=== PATIENT | female | born 1955 | race Caucasian/White ===

== ENCOUNTER 2024-11-03 08:08 | Emergency (ER) | payer OTHER, SELFPAY ==
--- NOTE | ~2024-11-03 | XR_ITS ---
EXAMINATION: XR LUMBOSACRAL SPINE CLINICAL INFORMATION: back pain COMPARISON: None available. TECHNIQUE: Three views of the lumbosacral spine. FINDINGS: Minimal right convex scoliosis, possibly positional. Normal lordosis. There is a mild superior endplate compression deformity of L2, age indeterminant. There is also minimal wedging of L5, also age indeterminate radiographically. No additional compression deformities. No other definite acute fractures. No subluxations. Disc spaces demonstrate mild to moderate disc degeneration most significant at L1-2. No soft tissue abnormalities aside from mild vascular calcifications. XR/XR lumbar spine 2-3V IMPRESSION: 1. Age-indeterminate mild superior endplate compression deformity of L2. 2. Minimal wedging of L5, age indeterminate. 3. Mild to moderate spondylosis. Electronically signed by: Louie Hernández MD 11/03/2024 10:19 AM EDT
[2024-11-03 08:26] VITALS: BP 158/84; PULSE 100; RESP 18; TEMP 36.7; O2SAT 95; BMI 29.3
--- NOTE | 2024-11-03 09:05 | ED.BACK ---
HPI - Back Pain/Injury General Chief Complaint: Back Pain/Injury Stated Complaint: Back Pain Injury Time Seen by Provider: 11/03/24 09:04 Source: patient and RN notes reviewed Mode of arrival: ambulatory Limitations: no limitations History of Present Illness ED Provider: Kathrin Gonsales PA-C HPI Narrative: This is a 68-year-old female, with a history of hypertension, hyperlipidemia, and asthma, who presents emergency department with concerns for back pain. Patient states that she has a history of a compression fracture of her L5 which occurred in April after a fall. Patient reports that last week she was moving a box spring and mattress and believes she re-injured her back. She states that during this moving process she did not feel any back pain however over the last week she has had increased back pain. She has been taking Motrin for her symptoms which has provided her with minimal relief. She denies any fevers or chills. No abdominal pain, nausea, vomiting or diarrhea. No urinary symptoms. No saddle anesthesia. No urinary or bowel retention or incontinence. Patient reports that the pain in her back stays in her low back, does not radiate. Reports pain is constant and worsens with movement and with palpation. No other complaints or concerns at this time. MD elicited complaint: back pain and back injury Pertinent past history: prior back pain Onset (ago): day(s) Timing: constant Severity: moderate Similar Symptoms Previously: Yes Quality: aching Location: lumbar spine Radiation: none Exacerbating factors: movement Relieving factors: movement Context: while lifting Associated symptoms: denies other symptoms Related Data Previous Rx's ?Medication ?Instructions ?Recorded acetaminophen 500 mg tablet 500 mg PO Q6H PRN pain #30 tabs 11/03/24 (Tylenol Extra Strength) cyclobenzaprine 5 mg tablet 5 mg PO TID #14 tabs 11/03/24 lidocaine 5 % topical patch 1 patch topical DAILY #30 ea 11/03/24 Allergies Allergy/AdvReac Type Severity Reaction Status Date / Time No Known Allergies Allergy Verified 11/03/24 08:27 Review of Systems Review of Systems: Yes all other systems are reviewed and are negative Constitutional: Constitutional: Reports as per HPI Physical Exam Vital Signs: Vital Signs: Last Vital Signs Temp 98.2 F 11/03/24 11:38 Pulse 110 H 11/03/24 11:38 Resp 18 11/03/24 11:38 BP 115/84 11/03/24 11:38 Pulse Ox 98 11/03/24 11:38 O2 Del Method Room Air 11/03/24 11:38 BMI result Body Mass Index 29.3 Const: General: cooperative, comfortable and no acute distress Orientation/consciousness: patient oriented x3 Limitations: no limitations HEENT: Head: Yes normal to inspection, Yes normocephalic and Yes atraumatic Ears: hearing grossly normal bilaterally General nose exam: Normal external nose present Face and sinus: Yes normal facial exam Mouth: Normal oral and palatal mucosa present, oropharynx normal and moist mucous membranes Throat: Yes posterior oropharynx normal Eyes: General: appearance normal, both eyes and all related structures Eyelids: Yes eyelids normal Conjunctivae: conjunctivae normal Sclerae: sclerae normal Pupils: Equal, round and reactive pupils present EOM: EOMs intact bilaterally Neck: Neck: Yes normal visual inspection, Yes full ROM and Yes no lymphadenopathy Lymphatic: no lymphadenopathy noted Chest: Chest palpation & inspection: normal inspection of the chest Resp: Effort & Inspection: normal respiratory effort and able to speak in complete sentences Auscultation: clear to auscultation bilaterally, no crackles, no rales, no rhonchi and no wheezes Cardio: Rate: regular rate Rhythm: regular rhythm Heart sounds: S1 normal heart sound present and S2 normal heart sound present GI: Inspection: Yes normal to inspection Back/Spine/Pelvis: Other: Tenderness palpation along the lumbar midline spine and lumbar paraspinous muscles. DTRs are 2+. Strength 5/5 in lower extremities. Distal sensation circulation intact. No calf tenderness bilaterally. No pitting edema. Skin: General skin exam: no rashes or lesions noted Trauma: no lacerations or abrasions Wounds: no wounds Neuro: General: patient oriented x3 and moves all extremities Cranial nerves: Yes Equal, round and reactive pupils present Extrem: General: Yes normal to inspection Right upper extremity: normal to inspection Left upper extremity: normal to inspection Right lower extremity: normal to inspection Left lower extremity: normal to inspection Course Reevaluation(s) Reevaluation #1: X-ray of the lumbar spine revealing age-indeterminate mild superior endplate compression deformity of L2, and minimal wedging of L5, as well as [id number] spondylosis. Discussed overall findings with patient. Encouraged to follow-up with the mental health specialist. She is well-appearing. She feels better after receiving Tylenol and lidocaine patches. Given strict return precautions. She understands and agrees with plan, stable for discharge. Medications Administered Discontinued Medications Generic Name Dose Route Start Last Admin Trade Name Maryann PRN Reason Stop Dose Admin Acetaminophen 975 mg 11/03/24 09:12 11/03/24 10:01 Acetaminophen 325 Mg Tablet PO 11/03/24 09:13 975 mg ONCE ONE Administration Lidocaine 1 patch 11/03/24 09:12 11/03/24 10:01 Lidocaine 4 % Patch Adh..Patch TRANSDERMA 11/03/24 09:13 1 patch ONCE ONE Administration Protocol Medical Decision Making Medical Decision Making MDM Narrative: This is a 68-year-old female who presents emergency department for evaluation of back pain. On arrival, vital signs within normal limits. She was speaking full sentences under no acute distress. Patient has tenderness palpation along the lumbar spine and paraspinous muscles. This patient presents with back pain most consistent with lumbago. Differential diagnoses includes lumbago versus musculoskeletal spasm / strain versus sciatica.No back pain red flags on history or physical. Presentation not consistent with malignancy (lack of history of malignancy, lack of B symptoms), fracture (no trauma, no bony tenderness to palpation), cauda equina syndrome, (no bowel or urinary incontinence/retention, no saddle anesthesia, no distal weakness), pulmonary embolism, renal colic, pyelonephritis (afebrile, no CVAT, no urinary symptoms). X-ray was obtained due to history of compression fracture, and point tenderness along the midline spine. Differential Diagnosis Differential Diagnoses: The differential diagnosis associated with the presentation includes See above Radiology Impression Discussion of test interpretation with radiology: I have reviewed the radiologist's reading. Radiologist Impression: [address] [address] XRay Report Signed Patient: Renetta Reynolds MR#: [id number] : 1955 Acct:[id number] Age/Sex: 68 / F ADM Date: 11/03/24 Loc: .ED Attending Dr: Ordering Physician: Kathrin Espinoza Date of Service: 11/03/24 Procedure(s): XR lumbar spine 2-3V Accession Number(s): [id number] cc: Oscar Hackett III, MD; Kathrin Espinoza~ EXAMINATION: XR LUMBOSACRAL SPINE CLINICAL INFORMATION: back pain COMPARISON: None available. TECHNIQUE: Three views of the lumbosacral spine. FINDINGS: Minimal right convex scoliosis, possibly positional. Normal lordosis. There is a mild superior endplate compression deformity of L2, age indeterminant. There is also minimal wedging of L5, also age indeterminate radiographically. No additional compression deformities. No other definite acute fractures. No subluxations. Disc spaces demonstrate mild to moderate disc degeneration most significant at L1-2. No soft tissue abnormalities aside from mild vascular calcifications. XR/XR lumbar spine 2-3V IMPRESSION: 1. Age-indeterminate mild superior endplate compression deformity of L2. 2. Minimal wedging of L5, age indeterminate. 3. Mild to moderate spondylosis. Electronically signed by: Louie Hernández MD 11/03/2024 10:19 AM EDT RP Dictated By: Louie Hernández MD Signed By: <Electronically signed by Discharge Plan Discharge Clinical Impression: Compression fracture of L2, Closed wedge compression fracture of L5 vertebra, Back pain Patient Disposition: Home, Self-Care Instructions: Acute Low Back Pain (ED), Back Pain (ED) Additional Instructions: You were seen in the emergency department due to back pain. Your x-rays that were performed today show an age-indeterminate mild superior endplate compression deformity at L2. You also have a minimal wedge of L5. Please follow-up with the mental health specialist regarding these findings. Please alternate between ibuprofen and Tylenol. You may also take muscle relaxants, Flexeril, this is a muscle relaxants, please do not drink alcohol or drive while taking this medication. Gentle stretching, heat or ice, massage can help with your symptoms. You may also apply lidocaine patches as needed for pain. If any new or worsening symptoms occur including but not limited to loss of bowel or bladder control, chest pain, shortness of breath, please seek emergent care. FINDINGS: Minimal right convex scoliosis, possibly positional. Normal lordosis. There is a mild superior endplate compression deformity of L2, age indeterminant. There is also minimal wedging of L5, also age indeterminate radiographically. No additional compression deformities. No other definite acute fractures. No subluxations. Disc spaces demonstrate mild to moderate disc degeneration most significant at L1-2. No soft tissue abnormalities aside from mild vascular calcifications. XR/XR lumbar spine 2-3V IMPRESSION: 1. Age-indeterminate mild superior endplate compression deformity of L2. 2. Minimal wedging of L5, age indeterminate. 3. Mild to moderate spondylosis. Prescriptions: New acetaminophen [Tylenol Extra Strength] 500 mg tablet 500 mg PO Q6H PRN (Reason: pain) Qty: 30 0RF cyclobenzaprine 5 mg tablet 5 mg PO TID Qty: 14 0RF lidocaine 5 % adhesive patch,medicated 1 patch topical DAILY Qty: 30 0RF Rx Instructions: leave on most painful area for up to 12 hrs [address]errals: [facility] [Provider Group] Interventions: ED Discharge Assessment Last Done: 11/03/24 11:38 Discharge Date/Time: 11/03/24 11:39 Print Language: Austrian
--- OUTSIDE RECORDS SUMMARY | 2024-11-03 09:58 | XMS_ITS | Encounter Summary ---
Author Organization [facility] Address [address] [place] [address] Care Team Providers Care Compressor Mechanic Bus Name Role Phone Oscar Hackett MD Primary Care Provider [phone] Reason for Referral * Imaging (Routine) - Closed Specialty Diagnoses / Procedures Referred By Contac t Referred To Contact Radiology Diagnoses Compression fracture of L5 vertebra with routine healing, subsequent encounter Osteopenia, unspecified location Procedures BD Bone Density DXA Axial Skeleton Oscar Hackett MD [address] [place] [address] Phone: tel: fax: [address] Phone: tel: Referral ID Status Reason Start Date Expiration Date Visits Re quested Visits Authorized [id number] Closed 06/25/2024 06/25/2025 1 1 Reason for Visit * Imaging (Routine) - Closed Specialty Diagnoses / Procedures Referred By Contac t Referred To Contact Radiology Diagnoses Compression fracture of L5 vertebra with routine healing, subsequent encounter Osteopenia, unspecified location Procedures BD Bone Density DXA Axial Skeleton Oscar Hackett MD [address] [place] [address] Phone: tel: fax: [address] Phone: tel: Referral ID Status Reason Start Date Expiration Date Visits Re quested Visits Authorized [id number] Closed 06/25/2024 06/25/2025 1 1 Encounter Details Date Type Department Care Team (Latest Contact Info) Description 10/28/2024 10:24 AM EDT - 10/28/2024 11:59 PM EDT Hospital Encounter Bone Density - [facility] [address], [place] [phone] Compression fracture of L5 vertebra with routine healing, subsequent encounter; Osteopenia, unspecified location Discharge Disposition: Home or Self Care Social History Tobacco Use Types Packs/Day Years Used Date Smoking Tobacco: Former Cigarettes Q uit: 07/23/2007 Smokeless Tobacco: Never Alcohol Use Standard Drinks/Week Comments No 0 (1 standard drink = 0.6 oz pur e alcohol) Housing Instability Answer Date Recorde d Are you worried that in the next 2 months you may not have stable housing? No 10/13/2024 Food Access & Nutrition Answer Date Rec orded Do you have access to a vari ety of food including fruits and vegetables? Patient declined 06/25/2024 Health Literacy Answer Date Recorded How often do you need to hav e someone help you when you read instructions, pamphlets, or other written material from your doctor or pharmacy? Never 10/13/2024 Caregiver: How often do you need to have someone help you when you read instructions, pamphlets, or other written material from your doctor or pharmacy? Not on file 10/13/2024 Financial Risk Answer Date Recorded How hard is it for you to pa y for the very basics like food, housing, medical care, and air conditioning / heating? Not very hard 10/13/2024 Transportation Answer Date Recorded Has the lack of transportati on kept you from meetings, work, or from getting things needed for daily living? No Has the lack of transportati on kept you from medical appointments or from getting medications? No 10/13/2024 Social Isolation Answer Date Recorded How often do you feel lonely or isolated from those around you? Sometimes 10/13/2024 Food Risk Answer Date Recorded Within the past 12 months we worried whether our food would run out before we got money to buy more. Sometimes true 025 Within the past 12 months th e food we bought just didn't last and we didn't have money to get more. Never true 10/13/2024 Dependent Care Answer Date Recorded Do you need help finding or paying for care for your loved ones. For example, child support specialist or elderly care for an older adult? No 10/13/2024 Education Answer Date Recorded Do you think completing more education or training, like finishing a GED, going to college, or learning a trade, would be helpful for you? No 10/13/2024 Employment and Income Answer Date Recor ded During the last four weeks, have you been actively looking for work? No 10/13/2024 Living Situation Answer Date Recorded What is your living situation? 0 10/13/2024 Interpersonal Safety Answer Date Record ed Physical Abuse 05/30/2024 Verbal Abuse 05/30/2024 Comments No Sex and Gender Information Value Date Recorded Sex Assigned at Female 06/13/2024 1:42 PM EST Legal Sex Female 2:22 PM EST Gender Identity Female 06/13/2024 1:42 PM EST Sexual Orientation Straight 06/13/2024 1: 42 PM EST documented as of this encounter Functional Status * Are you deaf or do you have serious difficulty hearing? Answer Date of Assessment Author No 06/13/2024 1:08 PM Orlando Simons RN * Are you blind or do you have serious difficulty seeing, even when wearing glasses? Answer Date of Assessment Author No 06/13/2024 1:08 PM Orlando Simons RN * Do you have serious difficulty walking or climbing stairs? Answer Date of Assessment Author No 06/13/2024 1:08 PM Orlando Simons RN * Do you have serious difficulty dressing or bathing? Answer Date of Assessment Author No 06/13/2024 1:08 PM Orlando Simons RN * Because of a physical, mental, or emotional condition, do you have serious difficulty doing errandsalone such as visiting the doctor? Answer Date of Assessment Author No 06/13/2024 1:08 PM Orlando Simons RN documented as of this encounter Mental Status * Because of a physical, mental, or emotional condition, do you have serious difficulty concentrating, remembering, or making decisions? (5 years old or older) Answer Entry Date Author No 06/13/2024 1:08 PM Orlando Simons RN documented in this encounter Medications at Time of Discharge albuterol 2.5 mg /3 mL (0.083 %) nebulizer solution 12/09/2020 albuterol HFA (PROAIR HFA ; PROVENTIL HFA ; VENTOLIN HFA) 90 mcg/actuation inhaler Inhale 2 Puffs into the lungs 4 times daily as needed for Cough or Wheezing. 05/29/2022 amLODIPine (NORVASC) 5 mg tablet Take 1 tablet (5 mg total) by mouth 1 (one) time each day. 90 each 1 10/13/2024 atorvastatin (LIPITOR) 20 mg tablet Take 1 tablet (20 mg total) by mouth at bedtime. 90 each 10/13/2024 bisacodyL (DULCOLAX) 5 mg EC tablet Take 2 tabs at 6pm as directed. 12/27/2023 bisacodyL (DULCOLAX) 5 mg EC tablet Take 2 tablets by mouth right before beginning bowel prep. See instructions provided by the office 2 tablet 09/10/2024 calcium carbonate-cholec alciferol 500 mg-10 mcg (400 unit) per tablet Take 2 tablets by mouth 1 (one) time each day before breakfast. 180 tablet 1 07/01/2024 divalproex (DEPAKOTE ER) 250 mg 24 hr tablet Take 2 Tabs by mouth 2 times daily. 08/02/2020 FLUoxetine (PROzac) 20 mg capsule Take 3 capsules (60 mg total) by mouth 1 (one) time each day. fluticasone propionate (FLONASE) 50 mcg/actuation nasal spray 2 Sprays by Nasal route daily for 360 days. 2 Sprays by Nasal route daily. 05/24/2018 gabapentin (NEURONTIN) 100 mg capsule Take 1 capsule (100 mg total) by mouth at bedtime. 30 each 06/01/2024 5 gabapentin (NEURONTIN) 300 mg capsule Take 1 capsule (300 mg total) by mouth 2 (two) times a day. 60 each 08/07/2024 haloperidoL (HALDOL) 0.5 mg tablet Take 1 tablet by mouth at bedtime. 05/14/2021 inhalat.spacing dev,large mask spacer SPACER DEVICE-ADULT Inhale 1 Device into the lungs 2 times daily. 08/04/2011 lisinopriL (PRINIVIL,ZESTRI L) 20 mg tablet Take 1 tablet (20 mg total) by mouth 1 (one) time each day. 90 tablet 1 10/13/2024 multivitamin with minerals (Centrum Silver) tablet Take 1 tablet by mouth 1 (one) time each day. 90 tablet 1 07/23/2024 oxyCODONE (OXY-IR) 5 mg immediate release capsule Take 1 capsule (5 mg total) by mouth every 6 (six) hours if needed for severe pain. Max Daily Amount: 20 mg 15 capsule 06/13/2024 polyethylene glycol (GoLYTELY) 236-22.74-6.74 -5.86 gram solution 12/27/2023 polyethylene glycol (Golytely) 236-22.74-6.74 -5.86 gram solution Take 4L by mouth once for one dose. May substitue any PEG. Starting at 6PM the night before your procedure drink 1 8oz glasses at your own pace until you complete half of the gallon. Finish 2nd half of the gallon 5 hours before your procedure. 4000 mL 09/10/2024 senna (SENOKOT) 8.6 mg tablet Take 2 tablets (17.2 mg total) by mouth at bedtime. 60 each 11 06/01/2024 5 documented as of this encounter Discharge Disposition Disposition Code Departure Means Destination Home or Self Care documented in this encounter Plan of Treatment Upcoming Encounters Date Type Department Care Team (Late st Contact Info) Description 01/14/2025 1:00 PM EDT Appointment [facility] End[facility] [address] [place] [phone] Mariah Bazzi MD [address] [address] 04/27/2025 1:00 PM EDT Office Visit Adult Medicine [address] [phone] Oscar Hackett MD [address] [place] [id number] 10/15/2025 2:00 PM EDT Office Visit Adult Medicine [facility] [address] [place] [address] Oscar Hackett MD [address] [place] [address] documented as of this encounter Procedures Procedure Name Priority Date/Time Associated Diagnosis Comments BD BONE DENSITY DXA AXIAL SKELETON Routine 10/28/2024 10:54 AM EDT Compression fracture of L5 vertebra with routine healing, subsequent encounter Osteopenia, unspecified location documented in this encounter Results * BD Bone Density DXA Axial Skeleton (10/28/2024 10:54 AM EDT) Anatomical Region Laterality Modality Wrist, Hip, L-spine Bone Densito metry 10/28/2024 11:4 9 AM EDT Impressions 10/28/2024 11:52 AM EDT Osteopenia by WHO criteria. This patient has a 20% risk of major osteoporotic fracture and a 4.3% risk of hip fracture over the next 10 years. (World Health Organization Fracture Risk Assessment) [facility] Department of Internal Medicine recommends using National Osteoporosis Foundation (NOF) guidelines in treatment decisions related to osteoporosis. NOF guidelines suggest considering treatment for postmenopausal women and men aged 50 or older presenting with the following: History of hip or vertebral fracture. T-score = -2.5 (DXA) at the femoral neck, total hip, or spine, after appropriate evaluation to exclude secondary causes. Low bone mass (T-score between -1.0 and -2.5 at the femoral neck or spine) AND a 10-year probability of a hip fracture = 3% OR a 10-year probability of a major osteoporosis-related fracture = 20% based on the [place]-adapted WHO algorithm Please note that all treatment decisions require clinical judgment and consideration of individual patient factors, including patient preferences, co-morbidities, previous drug use, risk factors not captured in the FRAX model (e.g., frailty, falls, vitamin D deficiency, increased bone turnover, interval significant decline in bone density) and possible under- or over-estimation of fracture risk by FRAX. Optional alternative screening schedule based on nova Martinez., [facility] August 10, 2011 for patients with osteopenia (based on hip BMD T-score) is as follows: * ??advanced osteopenia (T scores -2.00 to -2.49), BMD testing every year * ??moderate osteopenia (T scores -1.50 to -1.99), BMD testing every 5 years mild osteopenia or normal BMD (T scores -1.50 and higher), BMD testing every 15 years -------- FINAL REPORT -------- Dictated By: Natasha Rueda Dictated Date: 10/28/2024 11:49 ET Assigned Physician: Natasha Rueda Reviewed and Electronically Signed By: Natasha Rueda Signed Date: 10/28/2024 11:52 ET Workstation ID: [id number] Transcribed By: Self Edit Transcribed Date: 10/28/2024 11:49 ET Narrative 10/28/2024 11:52 AM EDT BONE DENSITY SCAN (DEXA): FINDINGS: Lumbar Spine T-score is -1.7. ?? (SD relative to 20-29 y/o adult) Z-score is 0.3. ??(SD relative to age matched peers) This is considered osteopenia by WHO criteria. Left Hip T-score is -2.4. Z-score is -0.6. This is considered osteopenia by WHO criteria. Comparison exam(s): 01/26/2021. ??No statistically significant change in bone mineral density. Procedure Note Natasha Rueda MD - 10/28/2024 BONE DENSITY SCAN (DEXA): FINDINGS: Lumbar Spine T-score is -1.7. (SD relative to 20-29 y/o adult) Z-score is 0.3. (SD relative to age matched peers) This is considered osteopenia by WHO criteria. Left Hip T-score is -2.4. Z-score is -0.6. This is considered osteopenia by WHO criteria. Comparison exam(s): 01/26/2021. No statistically significant change inbone mineral density. IMPRESSION: Osteopenia by WHO criteria. This patient has a 20% risk of majorosteoporotic fracture and a 4.3% risk of hip fracture over the next 10years. (World Health Organization Fracture Risk Assessment) [facility] Department of Internal Medicine recommendsusing National Osteoporosis Foundation (NOF) guidelines in treatmentdecisions related to osteoporosis. NOF guidelines suggest consideringtreatment for postmenopausal women and men aged 50 or older presentingwith the following: History of hip or vertebral fracture. T-score = -2.5 (DXA) at the femoral neck, total hip, or spine, afterappropriate evaluation to exclude secondary causes. Low bone mass (T-score between -1.0 and -2.5 at the femoral neck or spine)AND a 10-year probability of a hip fracture = 3% OR a 10-year probabilityof a major osteoporosis-related fracture = 20% based on the [place]-adapted WHOalgorithm Please note that all treatment decisions require clinical judgment andconsideration of individual patient factors, including patientpreferences, co-morbidities, previous drug use, risk factors not capturedin the FRAX model (e.g., frailty, falls, vitamin D deficiency, increasedbone turnover, interval significant decline in bone density) and possibleunder- or over-estimation of fracture risk by FRAX. Optional alternative screening schedule based on [facility] for patients with osteopenia (based on hip BMD T-score)is as follows: * advanced osteopenia (T scores -2.00 to -2.49), BMD testing every year * moderate osteopenia (T scores -1.50 to -1.99), BMD testing every 5years mild osteopenia or normal BMD (T scores -1.50 and higher), BMD testingevery 15 years -------- FINAL REPORT -------- Dictated By: Natasha Rueda Dictated Date: 10/28/2024 11:49 ET Assigned Physician: Natasha Rueda Reviewed and Electronically Signed By: Natasha Rueda Signed Date: 10/28/2024 11:52 ET Workstation ID: [id number] Transcribed By: Self Edit Transcribed Date: 10/28/2024 11:49 ET us Oscar Hackett MD IMG DXA PROCEDURES Final Result documented in this encounter Visit Diagnoses Diagnosis Compression fracture of L5 vertebra with routine healing, subsequent encounter Osteopenia, unspecified location documented in this encounter Additional Health Concerns Assessment Noted Time PHQ-9 Depression Total Score: 11 024 5:52 AM EST documented as of this encounter Care Teams Compressor Mechanic Bus Relationship Specialty Start Date End Date Oscar Hackett MD [address] [place] [id number] PCP - General Internal Medicine 05/27/24 documented as of this encounter
--- OUTSIDE RECORDS SUMMARY | 2024-11-03 09:58 | XMS_ITS | Clinical Summary ---
Author Organization [facility] Address [address] [place] [address] Phone Care Team Providers Care Theatre Professor Name Role Phone Oscar Hackett MD Primary Care Provider [phone] Allergies No known active allergies Medications albuterol 2.5 mg /3 mL (0.083 %) nebulizer solution 1 Active albuterol HFA (PROAIR HFA ; PROVENTIL HFA ; VENTOLIN HFA) 90 mcg/actuation inhaler Inhale 2 Puffs into the lungs 4 times daily as needed for Cough or Wheezing. 2 Active bisacodyL (DULCOLAX) 5 mg EC tablet Take 2 tabs at 6pm as directed. 4 Active divalproex (DEPAKOTE ER) 250 mg 24 hr tablet Take 2 Tabs by mouth 2 times daily. 1 Active fluticasone propionate (FLONASE) 50 mcg/actuation nasal spray 2 Sprays by Nasal route daily for 360 days. 2 Sprays by Nasal route daily. 8 Active haloperidoL (HALDOL) 0.5 mg tablet Take 1 tablet by mouth at bedtime. 1 Active polyethylene glycol (GoLYTELY) 236-22.74-6.74 -5.86 gram solution 4 Active inhalat.spacin g dev,large mask spacer SPACER DEVICE-ADULT Inhale 1 Device into the lungs 2 times daily. 2 Active FLUoxetine (PROzac) 20 mg capsule Take 3 capsules (60 mg total) by mouth 1 (one) time each day. Active gabapentin (NEURONTIN) 100 mg capsule Take 1 capsule (100 mg total) by mouth at bedtime. 30 each 4 025 Active senna (SENOKOT) 8.6 mg tablet Take 2 tablets (17.2 mg total) by mouth at bedtime. 60 each 4 025 Active oxyCODONE (OXY-IR) 5 mg immediate release capsule Take 1 capsule (5 mg total) by mouth every 6 (six) hours if needed for severe pain. Max Daily Amount: 20 mg 15 capsule 4 Active calcium carbonate-chol ecalciferol 500 mg-10 mcg (400 unit) per tablet Take 2 tablets by mouth 1 (one) time each day before breakfast. 180 tablet 1 4 Active multivitamin with minerals (Centrum Silver) tablet Take 1 tablet by mouth 1 (one) time each day. 90 tablet 1 5 Active gabapentin (NEURONTIN) 300 mg capsule Take 1 capsule (300 mg total) by mouth 2 (two) times a day. 60 each 1 5 026 Active bisacodyL (DULCOLAX) 5 mg EC tablet Take 2 tablets by mouth right before beginning bowel prep. See instructions provided by the office 2 tablet 5 Active Additional Information Patient not taking.Reported on 10/13/2024 polyethylene glycol (Golytely) 236-22.74-6.74 -5.86 gram solution Take 4L by mouth once for one dose. May substitue any PEG. Starting at 6PM the night before your procedure drink 1 8oz glasses at your own pace until you complete half of the gallon. Finish 2nd half of the gallon 5 hours before your procedure. 4000 mL 5 Active Additional Information Patient not taking.Reported on 10/13/2024 amLODIPine (NORVASC) 5 mg tablet Take 1 tablet (5 mg total) by mouth 1 (one) time each day. 90 each 1 5 Active atorvastatin (LIPITOR) 20 mg tablet Take 1 tablet (20 mg total) by mouth at bedtime. 90 each 1 5 Active lisinopriL (PRINIVIL,ZEST RIL) 20 mg tablet Take 1 tablet (20 mg total) by mouth 1 (one) time each day. 90 tablet 1 5 Active lisinopriL (PRINIVIL,ZEST RIL) 20 mg tablet Take 1 tablet (20 mg total) by mouth 1 (one) time each day. 90 tablet 1 4 025 Discontin ued(Reord er) amLODIPine (NORVASC) 5 mg tablet Take 1 tablet (5 mg total) by mouth 1 (one) time each day. 90 each 1 4 025 Discontin ued(Reord er) atorvastatin (LIPITOR) 20 mg tablet Take 1 tablet (20 mg total) by mouth at bedtime. 90 each 1 4 025 Discontin ued(Reord er) Active Problems Problem Noted Date Diagnosed Date Acute bilateral low back pain without sciatica 1 07/31/2023 Intractable low back pain 05/29/2024 Morbid obesity with BMI of 4 0.0-44.9, adult ([facility] V24, [facility] V28) 04/22/2024 Bipolar disorder ([facility] V24, [facility] V28) 02/20 Left rib fracture 05/24/2018 Overview (04/22/2024): Fell 12/21/2017 Atypical squamous cell rios es of undetermined significance (ASCUS) on cervical cytology with positive high risk human papilloma virus (HPV) 05/03/2017 Overview (04/22/2024): 12/19/2012 Pap ASCUS Neg HPV 03/30/2017 Pap ASCUS +HPV 05/03/2017 Colpo 08/08/2019 Pap negative HR HPV neg Tobacco use disorder 05/01/2017 Anxiety and depression 01/26/2016 Essential hypertension, benign 04/24/2014 Osteopenia 03/03/2014 Mixed hyperlipidemia 12/10/2007 Premature ventricular contractions 12/27/2005 Asthma 12/12/2005 Encounters Date Type Department Care Team Description 10/28/2024 10:24 AM EDT - 10/28/2024 11:59 PM EDT Hospital Encounter Bone [address] [phone] Compression fracture of L5 vertebra with routine healing, subsequent encounter; Osteopenia, unspecified location Discharge Disposition: Home or Self Care 10/13/2024 11:00 AM EDT Office Visit Adult [address] [phone] Oscar Hackett MD Routine physical examination (Primary Dx); Essential hypertension, benign; Mixed hyperlipidemia; Screening for diabetes mellitus; Other specified counseling; Screening mammogram for breast cancer; Chronic low back pain without sciatica, unspecified back pain laterality; Anxiety and depression; Bipolar affective disorder, remission status unspecified (CMS/[facility] V24, CMS/[facility] V28); Obesity (BMI 30-39.9) 08/19/2024 Telephone Adult [address] [phone] Oscar Hackett MD ORDERS ([facility] physician order # [id number]) 08/14/2024 Billing Patient Not Present [address] [phone] Oscar Hackett MD Essential (primary) hypertension (Primary Dx); Wedge compression fracture of first lumbar vertebra, init (CMS/HCC V24, CMS/HCC V28); Hyperlipidemia, unspecified hyperlipidemia type; Unsteadiness on feet; Bipolar affective disorder, remission status unspecified (CMS/HCC V24, CMS/[facility] V28); Anxiety disorder, unspecified type; Repeated falls; Low back pain, unspecified back pain laterality, unspecified chronicity, unspecified whether sciatica present; Uncomplicated asthma, unspecified asthma severity, unspecified whether persistent; Morbid (severe) obesity due to excess calories (CMS/[facility] V24, CMS/[facility] V28) from Last 3 Months Immunizations Name Administration Dates Next Due Influenza trivalent, 0.5mL ( Fluzone High-dose) 65yo and older 05/29/2022 Influenza trivalent, with pr eservative (Fluzone; Afluria) 6mo and older 05/22/2015,04/24/2014,04/12/2013,08/04,07/29/2010,06/26/2008 Influenza, Unspecified 05/03/2021,2017,03/25/2017,03/12,01/22/2012 Moderna SARS-CoV-2 COVID-19, mRNA, LNP-S, preservative free 12/11/2020 Pneumococcal conjugate 13 va lent (Prevnar 13, PCV13) 2mo and older 05/21/2015 Pneumococcal polysaccharide 23 valent (Pneumovax 23) 2yo and older 09/15/2020,03/02/2014 Td Tetanus diptheria (Tdvax) 7yo and older 02/08/2018 Tdap Tetanus diptheria acell ular pertussis (Boostrix; Adacel) 7yo and older 04/19/2007 Zoster Live 02/17/2017 Zoster recombinant (Shingrix ) 19yo and older 02/08/2019,01/16/2018 Surgical History Surgery Date Site/Laterality Comments SECTION PROCEDURE: HISTORICAL ; COMMENT: times two TUBAL LIGATION 05/1985 PROCEDURE: HISTORICAL TUBAL LIGATION COLONOSCOPY 02/04/2001 PROCEDURE: GA COLONOSCOPY FLX DX W/COLLJ SPEC WHEN PFRMD; COMMENT: Negative, Dr. Ross COLONOSCOPY 10/11/2010 PROCEDURE: GA COLONOSCOPY FLX DX W/COLLJ SPEC WHEN PFRMD; COMMENT: Normal. OTHER SURGICAL HISTORY PROCEDURE: GA OPEN TX TRANS-SCAPHOPERILUNAR FRACTURE DISLC; COMMENT: Left 04/04 OTHER SURGICAL HISTORY PROCEDURE: GA NEPHROSTOMY NEPHROTOMY W/DRAINAGE; COMMENT: as a child OTHER SURGICAL HISTORY PROCEDURE: ---- OTHER ----; COMMENT: cervical cyst removal OTHER SURGICAL HISTORY 04/10/2013 PROCEDURE: ---- OTHER ----; COMMENT: ORIF l wrist TONSILLECTOMY 07/1974 PROCEDURE: HISTORICAL TONSILLECTOMY Medical History Medical History Date Comments Depressive disorder, not els ewhere classified 12/27/2005 DX:Depressive disorder, not elsewhere classified Unspecified asthma(493.90) 12/12/2005 DX:Un specified asthma(493.90) Anxiety disorder in conditio ns classified elsewhere DX:Anxiety disorder in condi tions classified elsewhere Family history of malignant neoplasm of gastrointestinal tract 12/16/2007 DX:Family history of maligna nt neoplasm of gastrointestinal tract; COMMENT: Uncle with colon cancer. Negative colonoscopy 02/04/2001, no colon cancer screening needed for 10 years. Other premature beats 12/27/2005 DX:Other p remature beats Left wrist fracture 03/2013 DX:Left wris t fracture Right wrist fracture 05/2012 DX:Right wr ist fracture Essential hypertension, benign 04/24/2014 D X:Essential hypertension, benign Hypercholesteremia DX:Hyperchole steremia Family History Medical History Relation Name Comments Emphysema Father COPD, , PE Other: aneurysm Maternal Grandfather Diabetes Mother uterine cancer, PVD, asthma Colon cancer Uncle Breast cancer Neg Hx Ovarian cancer Neg Hx Relation Name Status Comments Father Maternal Grandfather Maternal Grandmother [place] Mother (Age 75) Paternal Grandfather [place] Paternal Grandmother [place] Uncle Social History Tobacco Use Types Packs/Day Years Used Date Smoking Tobacco: Former Cigarettes Q uit: 07/23/2007 Smokeless Tobacco: Never Tobacco Cessation:Counseling Given: Not Answered Alcohol Use Standard Drinks/Week Comments No 0 [...] care for your loved ones. For example, teacher early childhood development or elderly care for an older adult? [...] Orientation Straight 06/13/2024 1: 42 PM EST Obstetrics History Last Filed Vital Signs Vital Sign Reading Time Taken Comments Blood Pressure 110/80 10/13/2024 10:57 AM EDT Pulse 82 10/13/2024 10:57 AM EDT Temperature 36.4 ??C (97.6 ??F) 10/13/2024 10:57 AM E DT Respiratory Rate 16 10/13/2024 10:57 AM EDT Oxygen Saturation 96% 10/13/2024 10:57 AM EDT Inhaled Oxygen Concentration - - Weight 77.1 kg (170 lb) 10/13/2024 10:57 AM EDT Height 157.5 cm (5' 2.01 ) 10/13/2024 10:57 AM E DT Body Mass Index 31.09 10/13/2024 10:57 AM EDT Plan of Treatment Upcoming Encounters Date Type Department Care Team (Late st Contact Info) Description 01/14/2025 1:00 PM EDT Appointment [facility] [address] [place] [id number] Mariah Bazzi MD [address] [address] 04/27/2025 1:00 PM EDT Office Visit Adult Medicine [address] [phone] Oscar Hackett MD [address] [place] [address] 10/15/2025 2:00 PM EDT Office Visit [address] [phone] Oscar Hackett MD [address] [place] [address] [phone] Health Maintenance Due Date Last Done Comments RSV Immunization Adult Patients (1 - Risk 60-74 years 1-dose series) 2015 Cervical Cancer Screening: Pap Smear 08/08/2020 08/08/2019, 08/08/2019, 08/08/2019 Colorectal Cancer Screening: Colonoscopy 07/01/2022 Medicare Annual Wellness Visit 07/01/2022 Breast Cancer Screening 01/26/2023 01/27/20 21, 06/12/2019, 05/24/2018, Additional history exists COVID-19 Vaccine ( season) 2024 12/11/2020, 11/13/2020 Influenza Vaccine (Season Ended) 2025 05/04/2023, 05/29/2022, 05/03/2021, Additional history exists Falls Risk Assessment 06/01/2025 06/01/2024, 024 Depression Screening 06/25/2025 06/25/2024 Pneumococcal Vaccine: 50+ Years (3 of 3 - PCV20 or PCV21) 09/15/2025 09/15/2020, 05/21/2015, 03/02/2014 Hypertension/CHF/CAD Annual BMP Blood Test 10/13/2025 10/13/2024, 07/01/2024, 06/13/2024, Additional history exists Social Influencers of Health Screening 10/13/2025 10/13/2024 DTaP,Tdap,and Td Vaccines (3 - Td or Tdap) 02/09/2028 02/08/2018, 04/19/2007 Cholesterol Screening (Lipid Panel) 10/13/2029 10/13/2024, 06/12/2024, 03/14/2023 Osteoporosis Screening (Bone Density Screening) 10/28/2034 10/28/2024, 01/26/2021 Hepatitis C Screening Completed 03/30/2017 Zoster Vaccines Completed 02/08/2019, 12/22, 02/17/2017 HIB Vaccines Aged Out No longer eligi ble based on patient's age to complete this topic HPV Vaccines Aged Out No longer eligi ble based on patient's age to complete this topic Hepatitis A Vaccines Aged Out No long er eligible based on patient's age to complete this topic Hepatitis B Vaccines Aged Out No long er eligible based on patient's age to complete this topic IPV Vaccines Aged Out No longer eligi ble based on patient's age to complete this topic MMR Vaccines Aged Out No longer eligi ble based on patient's age to complete this topic Meningococcal ACWY Vaccine Aged Out N o longer eligible based on patient's age to complete this topic Meningococcal B Vaccine Aged Out No l onger eligible based on patient's age to complete this topic RSV Immunization Patients Under 20 months Aged Out No longer eligible based on patient's age to complete this topic Varicella Vaccines Aged Out No longer eligible based on patient's age to complete this topic Procedures Procedure Name Priority Date/Time Associated Diagnosis Comments BD BONE DENSITY DXA AXIAL SKELETON Routine 10/28/2024 10:54 AM EDT Compression fracture of L5 vertebra with routine healing, subsequent encounter Osteopenia, unspecified location CBC WITH AUTO DIFFERENTIAL Routine 10/13/2024 12:00 PM EDT Routine physical examination CBC AND DIFFERENTIAL Routine 10/13/2024 12:00 PM EDT Routine physical examination COMPREHENSIVE METABOLIC PANEL Routine 10/13/2024 12:00 PM EDT Essential hypertension, benign Screening for diabetes mellitus LIPID PANEL WITH REFLEX TO DIRECT LDL Routine 10/13/2024 12:00 PM EDT Routine physical examination Mixed hyperlipidemia FALLS RISK ASSESSMENT Routine 02/20/2024 SCREENING MAMMOGRAPHY BI 2-VIEW BREAST INC CAD Routine 01/26/2021 3:40 PM EDT Encounter for screening mammogram for malignant neoplasm of breast PAP SMEAR Routine 08/08/2019 HEPATITIS C SCREENING Routine 03/30/2017 from Last 3 Months or Most Recently Relevant to Health Maintenance Results * BD Bone Density DXA Axial [...] (World Health Organization Fracture Risk Assessment) The [facility] Department of Internal Medicine recommends using [...] alternative screening schedule based on nova Martinez., [facility] August 10, 2011 for patients with osteopenia [...] Signed Date: 10/28/2024 11:52 ET Workstation ID: [id number] Transcribed By: Self Edit Transcribed Date: 10/28/2024 [...] (World Health Organization Fracture Risk Assessment) The [facility] Department of Internal Medicine recommendsusing National [...] alternative screening schedule based on nova Martinez., [facility] for patients with osteopenia (based on [...] Signed Date: 10/28/2024 11:52 ET Workstation ID: [id number] Transcribed By: Self Edit Transcribed Date: 10/28/2024 11:49 ET us Oscar Hackett MD IMG DXA PROCEDURES Final Result * (ABNORMAL) Lipid panel with reflex to direct LDL (10/13/2024 12:00 PM EDT) Cholesterol 213(H) 0 - 200 mg/dL LAB CHEMISTRY METHOD 10/13/2024 4:57 PM EDT [facility] Triglycerides 63 0 - 150 mg/dL LAB CHEMISTRY METHOD 10/13/2024 4:57 PM EDT [facility] HDL 86 >=40 mg/dL LAB CHEMISTRY METHOD 10/13/2024 4:57 PM EDT [facility] LDL Calculated 114(H) 0 - 100 mg/dL LAB CHEMISTRY METHOD 10/13/2024 4:57 PM EDT [facility] VLDL Cholesterol Dennis 12.6 mg/dL LAB CHEMISTRY METHOD 10/13/2024 4:57 PM EDT [facility] Non HDL Chol. (LDL+VLDL) 127 <145 mg/dL LAB CHEMISTRY METHOD 10/13/2024 4:57 PM EDT [facility] Chol/HDL Ratio 2.5 0.0 - 4.4 LAB CHEMISTRY METHOD 10/13/2024 4:57 PM EDT [facility] Blood Venous blood specimen / Unknown Venipuncture / Unknown 10/13/2024 12:00 PM EDT 10/13/2024 12:00 PM EDT Oscar Hackett MD LAB BLOOD ORDERABLES Final Resu lt [facility] [address] [place] [address], * (ABNORMAL) CBC auto differential (10/13/2024 12:00 PM EDT) WBC 5.9 4.8 - 10.8 K/mcL LAB HEMETOLOGY METHOD 10/13/2024 3:05 PM EDT [facility] RBC 4.20 3.80 - 4.80 M/mcL LAB HEMETOLOGY METHOD 10/13/2024 3:05 PM [facility] Hemoglobin 13.5 11.5 - 16.0 g/dL LAB HEMETOLOGY METHOD 10/13/2024 3:05 PM [facility] Hematocrit 41.0 35.0 - 47.0 % LAB HEMETOLOGY METHOD 10/13/2024 3:05 PM [facility] MCV 97.6 79.0 - 98.0 FL LAB HEMETOLOGY METHOD 10/13/2024 3:05 PM [facility] MCH 32.1(H) 27.0 - 32.0 pcg LAB HEMETOLOGY METHOD 10/13/2024 3:05 PM [facility] MCHC 32.9 32.0 - 37.0 g/dL LAB HEMETOLOGY METHOD 10/13/2024 3:05 PM [facility] RDW 12.6 11.0 - 15.0 % LAB HEMETOLOGY METHOD 10/13/2024 3:05 PM [facility] Platelets 250 130 - 400 K/mcL LAB HEMETOLOGY METHOD 10/13/2024 3:05 PM [facility] MPV 10.3 7.0 - 11.0 FL LAB HEMETOLOGY METHOD 10/13/2024 3:05 PM [facility] NRBC 0.0 <1.0 % LAB HEMETOLOGY METHOD 10/13/2024 3:05 PM [facility] NRBC Absolute 0.00 <0.10 K/mcL LAB HEMETOLOGY METHOD 10/13/2024 3:05 PM [facility] Neutrophils Relative 44.3 % LAB HEMETOLOGY METHOD 10/13/2024 3:05 PM [facility] Lymphocytes Relative 42.5 % LAB HEMETOLOGY METHOD 10/13/2024 3:05 PM [facility] Monocytes Relative 9.6 % LAB HEMETOLOGY METHOD 10/13/2024 3:05 PM [facility] Eosinophils Relative 2.7 % LAB HEMETOLOGY METHOD 10/13/2024 3:05 PM [facility] Basophils Relative 0.7 % LAB HEMETOLOGY METHOD 10/13/2024 3:05 PM [facility] Immature Granulocytes Relative 0.2 % LAB HEMETOLOGY METHOD 10/13/2024 3:05 PM [facility] Neutrophils Absolute 2.63 1.50 - 7.00 K/mcL LAB HEMETOLOGY METHOD 10/13/2024 3:05 PM [facility] Lymphocytes Absolute 2.52 1.00 - 5.00 K/mcL LAB HEMETOLOGY METHOD 10/13/2024 3:05 PM [facility] Monocytes Absolute 0.57 0.20 - 1.00 K/mcL LAB HEMETOLOGY METHOD 10/13/2024 3:05 PM [facility] Eosinophils Absolute 0.16 0.00 - 0.50 K/mcL LAB HEMETOLOGY METHOD 10/13/2024 3:05 PM [facility] Basophils Absolute 0.04 0.00 - 0.20 K/mcL LAB HEMETOLOGY METHOD 10/13/2024 3:05 PM [facility] Immature Granulocytes Absolute 0.01 0.00 - 0.03 K/mcL LAB HEMETOLOGY METHOD 10/13/2024 3:05 PM [facility] Blood Venous blood specimen / Unknown Venipuncture / Unknown 10/13/2024 12:00 PM EDT 10/13/2024 12:00 PM EDT us Oscar Hackett MD LAB BLOOD ORDERABLES Final Resu lt [facility] [address] [place] [address], * Comprehensive metabolic panel (10/13/2024 12:00 PM EDT) Sodium 138 133 - 145 mmol/L LAB CHEMISTRY METHOD 10/13/2024 4:55 PM EDT [facility] Potassium 4.4 3.5 - 5.5 mmol/L LAB CHEMISTRY METHOD 10/13/2024 4:55 PM [facility] Chloride 103 96 - 110 mmol/L LAB CHEMISTRY METHOD 10/13/2024 4:55 PM [facility] CO2 26 21 - 32 mmol/L LAB CHEMISTRY METHOD 10/13/2024 4:55 PM [facility] Anion Gap 9 3 - 11 LAB CHEMISTRY METHOD 10/13/2024 4:55 PM T [facility] Glucose 84 70 - 100 mg/dL LAB CHEMISTRY METHOD 10/13/2024 4:55 PM [facility] BUN 16 5 - 25 mg/dL LAB CHEMISTRY METHOD 10/13/2024 4:55 PM [facility] Creatinine 0.59 0.50 - 1.10 mg/dL LAB CHEMISTRY METHOD [facility]/13[facility]24 [facility] eGFR 98 >=60 mL/min/1. 73m2 LAB CHEMISTRY METHOD 10/13/2024 4:55 PM [facility] Comment:Calculation based on the??Chronic Kidney Disease Epidemiology Collaboration (CKD-EPI) equation refit??without adjustment for race. BUN/Creatinine Ratio 27.1 LAB CHEMISTRY METHOD 10/13/2024 4:55 PM [facility] Calcium 9.5 8.5 - 10.5 mg/dL LAB CHEMISTRY METHOD 10/13/2024 4:55 PM [facility] AST (SGOT) 15 10 - 42 unit/L LAB CHEMISTRY METHOD 10/13/2024 4:55 PM EDT [facility] ALT (SGPT) 20 10 - 60 unit/L LAB CHEMISTRY METHOD 10/13/2024 4:55 PM EDT [facility] Alkaline Phosphatase 84 42 - 121 unit/L LAB CHEMISTRY METHOD 10/13/2024 4:55 PM EDT [facility] Total Protein 7.0 6.0 - 8.0 g/dL LAB CHEMISTRY METHOD 10/13/2024 4:55 PM EDT [facility] Albumin 3.8 3.2 - 5.0 g/dL LAB CHEMISTRY METHOD 10/13/2024 4:55 PM EDT [facility] Total Bilirubin 0.7 0.0 - 1.4 mg/dL LAB CHEMISTRY METHOD 10/13/2024 4:55 PM EDT [facility] Blood Venous blood specimen / Unknown Venipuncture / Unknown 10/13/2024 12:00 PM EDT 10/13/2024 12:00 PM EDT Oscar Hackett MD LAB BLOOD ORDERABLES Final Resu lt [facility] [address] [place] [address], * Hm Falls Risk Assessment (02/20/2024) Pathologist [facility] Falls Risk Assessment Abstracted Historical Provider HEALTH MAINTENANCE Final Result * SCREENING MAMMOGRAPHY BI 2-VIEW BREAST INC CAD (01/26/2021 3:40 PM EDT) Anatomical Region Laterality Modality Radiographic Allison ging 08/02/2020 3:05 PM EST Narrative 01/27/2021 8:59 AM EDT This is a summary report. The complete report is available in the patient's medical record. If you cannot access the medical record, please contact the sending organization for a detailed fax or copy. Full field digital screening mammography, reviewed with CAD and compared to previous. ??Both 2D and tomosynthesis techniques were used. ??The breasts are composed of fatty and fibroglandular tissue. ??No suspicious mass, architectural distortion or suspicious calcifications are identified. IMPRESSION: : No mammographic evidence of malignancy. BIRADS 1-Negative; N. 5 year breast cancer risk assessment 1.5 % Lifetime breast cancer risk assessment 5.6 % Breast cancer risk category Low (<15%) Procedure Note Srinivas Bearden MD - 07/11/2022 This is a summary report. The complete report is available in thepatient's medical record. If you cannot access the medical record, pleasecontact the sending organization for a detailed fax or copy. Full field digital screening mammography, reviewed with CAD and comparedto previous. Both 2D and tomosynthesis techniques were used. The breastsare composed of fatty and fibroglandular tissue. No suspicious mass,architectural distortion or suspicious calcifications are identified. IMPRESSION: : No mammographic evidence of malignancy. BIRADS 1-Negative; N. 5 year breast cancer risk assessment 1.5 % Lifetime breast cancer risk assessment 5.6 % Breast cancer risk category Low (<15%) Ana CASSIDY IMG XR PROCEDURES Final Resul t * Pap smear (08/08/2019) 08/08/2019 Narrative HISTORICAL TESTING LAB RESULTING AGENCY - 08/12/2019 12:56 PM EST [id number] THINPREP PAP, IMAGED: NEGATIVE FOR SQUAMOUS INTRAEPITHELIAL LESION AND MALIGNANCY . ABUNDANT RED BLOOD CELLS ARE PRESENT. LETTY BLANTON , MEJIA(ASCP) (CASE ELECTRONICALLY SIGNED 08 12 2019) RESULT OF APTIMA HIGH RISK HPV ASSAY: HIGH RISK HPV: ??NEGATIVE (SEROTYPES 16,18,31,33,35,39,45,51,52,56,58,59,66,68) COMPLETED ON 2019-08-11 ADEQUACY: SATISFACTORY ENDOCERVICAL/TRANSFORMATION ZONE COMPONENT PRESENT. SOURCE: THINPREP PAP HPV ANY DX: ??REFLEX 16 AND 18, CERVICAL, IMAGED CLINICAL INFORMATION: HPV ANY DIAGNOSIS. Z12.4, LMP 12/19/10. us Elan Hernandez MD LAB CYTOLOGY ORDERABLES Final Result HISTORICAL TESTING LAB RESULTING AGENCY * Hepatitis C Screening (03/30/2017) Hepatitis C Screening Abstracted us Historical Provider HEALTH MAINTENANCE Final Result from Last 3 Months or Most Recently Relevant to Health Maintenance Insurance [employer] Member Subscriber Plan / Payer (Ef fective 2024-Present) Name:Renetta Reynolds Relation to Subscriber:Self Name:Renetta Reynolds Payer ID:[id number] Group ID:[id number] Type:Not on file Address: [place] [address] [address] [id number] Advance Directives * Full Code - Default (Latest Code Status on File) Date Activated Date Inactivated Comments 05/29/2024 9:54 PM 06/01/2024 9:00 PM This is ord er is used when code status has not been discussed with the patient, or code status is otherwise unknown/unconfirmed To update the patient's code status, place a code status order. Do not modify or discontinue any currently active code status orders. Care Teams Theatre Professor Relationship Specialty Start Date End Date Oscar Hackett MD [address] [place] [id number] PCP - General Internal Medicine 05/27/24
[2024-11-03] MEDS: Acetaminophen 325 MG TABLET 975 MG PO (10:01)
[2024-11-03] MEDS: Lidocaine 4 % Patch ADH..PATCH 1 PATCH TRANSDERMA (10:01)
[2024-11-03 10:02] VITALS: BP 115/84; PULSE 110; RESP 18; TEMP 36.8; O2SAT 98
[2024-11-03 11:38] VITALS: BP 115/84; PULSE 110; RESP 18; TEMP 36.8; O2SAT 98
== END 2024-11-03 11:39 | disposition home or self-care (01) ==
PROVIDERS: Emergency Provider Emergency Medicine; PCP Internal Medicine
DX: M48.56XA Collapsed vertebra, not elsewhere classified, lumbar region, initial encounter for fracture (principal); M54.50 Low back pain, unspecified
CPT/HCPCS: 72100; 99283; 99284

== ENCOUNTER → 2024-11-03 09:12 | Outpatient (BNV) | payer OTHER, SELFPAY | PROVIDERS: Emergency Provider Emergency Medicine; PCP Internal Medicine; Visit Provider Radiology Diagnostic Radiology | DX: M47.812 Spondylosis without myelopathy or radiculopathy, cervical region (principal) | CPT/HCPCS: 72100 ==

== ENCOUNTER → 2025-02-12 19:48 | Outpatient (BNV) | payer OTHER, SELFPAY | PROVIDERS: Visit Provider Radiology Diagnostic Radiology | DX: S92.355A Nondisplaced fracture of fifth metatarsal bone, left foot, initial encounter for closed fracture (principal) | CPT/HCPCS: 73610 ==

== ENCOUNTER 2025-02-12 20:39 | Emergency (ER) | payer OTHER, SELFPAY ==
--- NOTE | ~2025-02-12 | XR_ITS ---
CLINICAL HISTORY: fall 3 view left ankle Comparison: None provided Findings: No acute ankle fracture. Partially evaluated subtle nondisplaced 5th metatarsal fracture. Osteopenia. Mild osteophytes along the dorsum of the foot. No ankle effusion. No radiopaque foreign body. Diffuse soft tissue swelling. IMPRESSION: 1. No acute ankle fracture. 2. Partially evaluated subtle nondisplaced 5th metatarsal fracture. This document has been electronically signed by: Scott Gilbert MD on 02/12/2025 21:10:46
--- NOTE | ~2025-02-12 | XR_ITS ---
CLINICAL HISTORY: Pain; Abnormal L Ankle X-ray; ? 5th Metatarsal Fx 3 view left foot Comparison: None provided Findings: Nondisplaced obliquely oriented 5th metatarsal fracture extending through the tarsometatarsal joint distally along the meta diaphysis. Lateral soft tissue swelling. No significant arthritic change or erosions. No radiopaque foreign body. IMPRESSION: 5th metatarsal fracture. This document has been electronically signed by: Scott Gilbert MD on 02/13/2025 02:33:43
[2025-02-12 20:43] VITALS: BP 151/87; PULSE 84; O2SAT 98
[2025-02-12 20:44] VITALS: BP 179/77; PULSE 88; RESP 16; TEMP 37.3; O2SAT 96; BMI 29.8
[2025-02-12 22:00] VITALS: BP 141/64; PULSE 69; RESP 16; TEMP 36.7; O2SAT 99
--- NOTE | 2025-02-13 00:51 | ED_ITS ---
HPI - Extremity Injury (Lower) General Chief Complaint: Extremity Injury, Lower Stated Complaint: L ankle injury Time Seen by Provider: 02/13/25 00:48 Source: patient Mode of arrival: ambulatory Limitations: no limitations History of Present Illness ED Provider: Louie CASSIDY HPI Narrative: The patient is a 69-year-old female presenting to the ED reporting yesterday while walking down a incline on her street she suffered a inversion injury of her left ankle. Patient reports severe pain in the lateral aspect of the left foot radiating to the left lateral malleolus. Patient attempted ice and rest at home without significant relief and presents to the ED for evaluation after she noted increased swelling and bruising of the lateral aspect of the foot and ankle. The patient denies previous injury to the affected extremity, denies associated head strike, reports fall was mechanical, denies prodrome or LOC. Related Data Previous Rx's ?Medication ?Instructions ?Recorded acetaminophen 500 mg tablet 500 mg PO Q6H PRN pain #30 tabs 11/03/24 (Tylenol Extra Strength) cyclobenzaprine 5 mg tablet 5 mg PO TID #14 tabs 11/03 lidocaine 5 % topical patch 1 patch topical DAILY #30 ea 11/03/24 acetaminophen 500 mg capsule 1,000 mg (2 x 500 mg) PO .q8 PRN 02/13/25 fever or pain #30 caps ibuprofen 600 mg tablet 600 mg PO Q8H PRN fever or p ain 02/13/25 #30 tabs oxycodone 5 mg tablet 5 mg PO Q8H PRN pain #14 tab s 02/13/25 Allergies Allergy/AdvReac Type Severity Reaction Status Date / Time No Known Allergies Allergy Verified 02/12/25 20:45 Review of Systems Review of Systems: Yes all other systems are reviewed and are negative [facility] Social History Social History (System 05/22/23 @ 14:51 by Yamilet Zhou) Alcohol intake: former Smoked in Last 30 Days: Yes Use of substances other than those prescribed or required for medical reasons: No Advance Directives: No Advance Directives Information Provided: Yes Physical Exam Vital Signs: Vital Signs: Last Vital Signs Temp 98.0 F 02/13/25 02:16 Pulse 69 02/13/25 02:16 Resp 20 02/13/25 02:16 BP 124/70 02/13/25 02:16 Pulse Ox 97 02/13/25 02:16 O2 Del Method Room Air 02/13/25 02:16 BMI result Body Mass Index 29.8 CONSTITUTIONAL: The patient appears non-toxic, well nourished and in no acute distress. Vital signs as documented. HEAD: Atraumatic, normocephalic. EYES: EOMs grossly intact, pupils equal, conjunctiva clear, no exudate. ENT: Nares patent, no discharge. Airway patent, no audible stridor, visible mucosa is pink and moist without noted lesions. NECK: trachea is midline, no obvious masses or gross abnormalities. CHEST: Symmetric movement, normal appearance. LUNGS: Non-labored work of breathing. CARDIAC: No evidence of hypoperfusion. ABDOMEN: Nondistended, no obvious injury. : Deferred. EXTREMITIES: There is significant swelling, contusion, and tenderness to palpation of the lateral aspect of the left foot and lateral malleolus of the left ankle, no proximal tenderness, no open injury. Distal CSM is intact, 2+ DP/PT pulses, painful but not limited range of motion. Moves all other extremities spontaneously without reported pain. No other obvious injury or deformity noted. NEURO: Alert and oriented x3, CN II-XII appear grossly intact. Cerebellar Functioning grossly intact. Speech clear and appropriate. SKIN: Warm, dry, color appropriate. No rashes or lesions noted. Medications Administered Discontinued Medications Generic Name Dose Route Start Last Admin Trade Name Freq PRN Reason Stop Dose Admin Ibuprofen 600 mg 02/13/25 00:05 02/13/25 00:33 Ibuprofen 600 Mg Tablet PO 02/13/25 00:06 600 mg ONCE ONE Administration Oxycodone HCl 5 mg 02/13/25 01:07 02/13/25 01:26 Oxycodone Hcl Immed Release 5 Mg Tablet PO 02/13/25 01:08 5 mg ONCE ONE Administration Medical Decision Making Medical Decision Making MDM Narrative: 3:53 AM 02/13/2025 (Philippe CASSIDY): The patient is a 69-year-old female presenting to the ED for evaluation of left ankle and foot pain after a rolling inversion injury that occurred yesterday while walking in heels. The patient in the ED has contusion and swelling of the lateral malleolus and lateral left foot. The patient's x-ray show no ankle fracture however there is evidence of a nondisplaced 5th metatarsal fracture. Patient will be placed in a walking boot, provided crutches, and will be treated with anti-inflammatories for pain, will be treated with oxycodone for breakthrough pain. Patient will be referred to Orthopedics. Admission/Observation Consideration of admission/observation: Escalation of care including admission/observation considered Radiology Impression Discussion of test interpretation with radiology: I have reviewed the radiologist's reading. Radiologist Impression: 3 view left ankle Comparison: None provided Findings: No acute ankle fracture. Partially evaluated subtle nondisplaced 5th metatarsal fracture. Osteopenia. Mild osteophytes along the dorsum of the foot. No ankle effusion. No radiopaque foreign body. Diffuse soft tissue swelling. IMPRESSION: 1. No acute ankle fracture. 2. Partially evaluated subtle nondisplaced 5th metatarsal fracture. This document has been electronically signed by: Scott Gilbert MD on 02/12/2025 21:10:46 3 view left foot Comparison: None provided Findings: Nondisplaced obliquely oriented 5th metatarsal fracture extending through the tarsometatarsal joint distally along the meta diaphysis. Lateral soft tissue swelling. No significant arthritic change or erosions. No radiopaque foreign body. IMPRESSION: 5th metatarsal fracture. This document has been electronically signed by: Scott Gilbert MD on 02/13/2025 02:33:43 Prescription Management I considered prescription management with: Pain Medication Discharge Plan Discharge Clinical Impression: Fracture of fifth metatarsal bone of left foot Patient Disposition: Home, Self-Care Instructions: Foot Fracture in Adults (ED) Additional Instructions: Thank you for choosing [facility]'s Emergency Department for your care today. Your x-ray today unfortunately showed that you suffered a fracture of the 5th metatarsal bone of your left foot. There was no fracture of your ankle. At this time there is no evidence of an acute process requiring admission to the hospital or continued ED observation, and it is safe to discharge you home. Please wear the boot provided for comfort and use the crutches to remain nonweightbearing. You may take alternating (staggered) doses of ibuprofen 600mg and Tylenol 1000mg every 4 hours as needed for any additional pain. Please rest the injured area, and apply ice for 20 minutes every hour. Please stay well hydrated and get plenty of rest. As a part of your care plan, you have also been prescribed an opiate based pain medication. Please take this medication only for severe pain that is not relieved by ibuprofen and/or Tylenol. Opiate based medications have a high risk of unintentional addiction and abuse. Take this medication only as directed and only if absolutely necessary. This medicine can make you drowsy, you are not allowed to drive, operate heavy machinery, or be the sole care provider for children while taking this medication. Please follow up with our orthopedic department by calling the number provided for a follow up appointment. Please also follow up with your primary care physician for re-evaluation, additional management of your symptoms, and continued preventative care. If you do not have a primary care physician, please call the [facility] at [phone] to establish a new primary care physician. While waiting to establish your new primary care physician, you can call our [facility]in [facility] at [phone] for non-emergency needs. Please return to the emergency department if you develop a severe or sudden change in your symptoms, a fever over 100.4 that does not improve with Tylenol or Ibuprofen, recurrent vomiting, or any other new or worsening symptoms or concerns. Prescriptions: New oxycodone 5 mg tablet 5 mg PO Q8H PRN (Reason: pain) Qty: 14 0RF Rx Instructions: Partial Fill upon patient request. ibuprofen 600 mg tablet 600 mg PO Q8H PRN (Reason: fever or pain) Qty: 30 0RF acetaminophen 500 mg capsule 1,000 mg PO .q8 PRN (Reason: fever or pain) Qty: 30 0RF No Action acetaminophen [Tylenol Extra Strength] 500 mg tablet 500 mg PO Q6H PRN (Reason: pain) Qty: 30 0RF cyclobenzaprine 5 mg tablet 5 mg PO TID Qty: 14 0RF lidocaine 5 % adhesive patch,medicated 1 patch topical DAILY Qty: 30 0RF Rx Instructions: leave on most painful area for up to 12 hrs Referrals: Oscar Hackett III, MD [Primary Care Provider, Medical] Clinical Impression: Fracture of fifth metatarsal bone of left foot Jose David Price MD [Physician, Orthopedics] Clinical Impression: Fracture of fifth metatarsal bone of left foot Print Language: Czech
[2025-02-13] MEDS: oxyCODONE HCl Immed Release 5 MG TABLET PO (01:26)
[2025-02-13 02:16] VITALS: BP 124/70; PULSE 69; RESP 20; TEMP 36.7; O2SAT 97
[2025-02-13 05:00] VITALS: BP 173/95; PULSE 84; RESP 16; TEMP 36.7; O2SAT 97
[2025-02-13 06:15] VITALS: BP 147/87; PULSE 74; RESP 18; TEMP 36.8; O2SAT 97
== END 2025-02-13 06:16 | disposition home or self-care (01) ==
PROVIDERS: Emergency Provider Emergency Medicine; PCP Internal Medicine
DX: S92.355A Nondisplaced fracture of fifth metatarsal bone, left foot, initial encounter for closed fracture (principal); S90.02XA Contusion of left ankle, initial encounter; Y93.01 Activity, walking, marching and hiking; Y92.488 Other paved roadways as the place of occurrence of the external cause; Y99.8 Other external cause status
CPT/HCPCS: 73610; 73630; 99283; 99285

== ENCOUNTER → 2025-02-13 00:55 | Outpatient (BNV) | payer OTHER, SELFPAY | PROVIDERS: Emergency Provider Emergency Medicine; PCP Internal Medicine; Visit Provider Radiology Diagnostic Radiology | DX: S92.355A Nondisplaced fracture of fifth metatarsal bone, left foot, initial encounter for closed fracture (principal) | CPT/HCPCS: 73630 ==

== ENCOUNTER 2025-02-25 09:47 | Outpatient (AMB) | payer OTHER, SELFPAY ==
--- NOTE | 2025-02-25 09:55 | MHC.OFFVIS ---
Vital Signs 02/25/25 10:00 Height 5 ft 2 in Weight 163 lb BMI 29.8 Handedness Right Intake Visit Reasons: FC- 5th metatarsal fx Intake Note: Renetta is a 69-year-old female who presents today for a fracture care visit status post emergency room visit on 02/13/25. Per patient's ED note, while walking down a incline on a street on 02/11/25 when she suffered a inversion injury of her left ankle. She is expressing severe pain on the lateral aspect of the left foot radiating to the left lateral malleolus. She expresses pain with ambulation and standing, no pain at rest. Expresses numbness and tingling in her left foot digits. Reports she is having continued swelling in the left foot. Tylenol and ibuprofen offer her mild relief. Taking blood thinner for PVC. Allergies No Known Allergies Allergy (Verified 02/25/25 10:00) Medication List - Last Reconciled 02/25/25 by Samir Alvarez PA-C acetaminophen 1,000 mg (2 x 500 mg) PO .q8 PRN acetaminophen (Tylenol Extra Strength) 500 mg PO Q6H PRN amlodipine 5 mg PO DAILY atorvastatin 20 mg PO DAILY calcium carbonate-vitamin D3 500 mg-10 mcg (400 unit) (Oyster Shell Calcium-Vitamin D3) tabs PO cyclobenzaprine 5 mg PO TID divalproex 500 mg PO BID fluoxetine 40 mg PO DAILY gabapentin mg PO ibuprofen 600 mg PO Q8H PRN lidocaine 5% 1 patch topical DAILY lisinopril 20 mg PO DAILY multivitamin with folic acid 400 mcg (Daily-Marcelino (with folic acid)) 1 tab PO DAILY oxycodone 5 mg PO Q8H PRN quetiapine 100 mg PO BEDTIME HPI HPI FC- 5th metatarsal fx: Details: 69-year-old female presents to the office today for an injury she sustained to her left foot on 02/11/2025. She states she was [place] the [employer] [place] when she stepped on an uneven portion of the sidewalk and twisted her foot and fell. She was seen in the emergency department on 02/13 where x-rays were obtained and she was found to have a fracture through the base of the 5th metatarsal. She was given a small walking boot, weight-bearing as tolerated and referred to our office for ortho eval. She states the small walking boot is too small and she has been using her friend's medium boot. [facility] Social History (System 05/22/23 @ 14:51 by Yamilet Zhou) Alcohol intake: former Review of Systems Const All systems reviewed & are unremarkable except as noted in HPI and below Physical Exam Vital Signs: BMI result Body Mass Index 29.8 Const General: cooperative and no acute distress Orientation/consciousness: patient oriented x3 Resp Effort & Inspection: normal respiratory effort and able to speak in complete sentences Cardio Peripheral pulses: Peripheral pulses 2+ throughout Neuro General: patient oriented x3 Extrem Other: Left foot skin intact. There is diffuse swelling along the left foot. There is tenderness at the base of the 5th metatarsal. Sensation intact. EHL intact. No pain along the mediolateral malleolus. Neurovascularly intact. Office Procedures AMB Fracture Care Fracture Billing Code: Fracture Billing Code Results Reviewed Results Reviewed: X-rays of the left foot obtained in the emergency department on 02/13/2025 show a an intra-articular minimally displaced fracture at the base of the 5th metatarsal. Assessment & Plan Assessment & Plan (1) Fracture of fifth metatarsal bone of left foot: Code(s): S92.352A - Displaced fracture of fifth metatarsal bone, left foot, initial encounter for closed fracture Category: Medical Qualifiers: Encounter type: initial encounter Fracture alignment: nondisplaced Fracture type: closed Qualified Code(s): S92.355A - Nondisplaced fracture of fifth metatarsal bone, left foot, initial encounter for closed fracture Plan: The patient will continue with the boot weightbearing as tolerated. We did have to fit her for a new boot as she was given a small in the emergency department and she does not have her own medium size boot. She will continue weight-bearing as tolerated she can remove the boot for rest and hygiene. I did explain over the next 4 weeks she can attempt transitioning to a regular street shoe however this needs to be something with a stiff sole. I explained the swelling may make it difficult to fit into a snug shoe so she needs to accommodate with something that is wide. She should continue to work on strict elevation above heart level to help with swelling and also take anti-inflammatories. I explained to the patient the 1st 6 weeks is typically when the bone starts to heal however total of 3 months for strong union. I will see the patient back in 4-6 weeks with x-rays, sooner if needed. Coding Level of Care Code New Pt Level 3 (19805) Complex EM visit Add On G2211 Diagnoses Fracture of fifth metatarsal bone of left foot S92.355A Encounter type: initial encounter Fracture alignment: nondisplaced Fracture type: closed CPT Codes Fracture Care - Fracture Billing Code: Fracture Billing Code ([id number])
[2025-02-25 10:00] VITALS: BMI 29.8
--- OUTSIDE RECORDS SUMMARY | 2025-02-25 10:14 | XMS_ITS | Clinical Summary ---
Author Organization [facility] Address [address] [place] [address] Phone Care Team Providers Care Label Pinker Name Role Phone Oscar Hackett MD Primary Care Provider [phone] Allergies No known active allergies Medications albuterol 2.5 mg /3 mL (0.083 %) nebulizer solution 1 Active albuterol HFA (PROAIR HFA ; PROVENTIL HFA ; VENTOLIN HFA) 90 mcg/actuation inhaler Inhale 2 Puffs into the lungs 4 times daily as needed for Cough or Wheezing. 2 Active divalproex (DEPAKOTE ER) 250 mg 24 hr tablet Take 2 Tabs by mouth 2 times daily. 1 Active FLUoxetine (PROzac) 20 mg capsule Take 3 capsules (60 mg total) by mouth 1 (one) time each day. Active oxyCODONE (OXY-IR) 5 mg immediate release capsule Take 1 capsule (5 mg total) by mouth every 6 (six) hours if needed for severe pain. Max Daily Amount: 20 mg 15 capsule 4 Active calcium carbonate-julisa calciferol 500 mg-10 mcg (400 unit) per tablet Take 2 tablets by mouth 1 (one) time each day before breakfast. 180 tablet 1 4 Active atorvastatin (LIPITOR) 20 mg tablet Take 1 tablet (20 mg total) by mouth at bedtime. 90 each 1 03/24/202 5 Active lisinopriL (PRINIVIL,ZESTR IL) 20 mg tablet Take 1 tablet (20 mg total) by mouth 1 (one) time each day. 90 tablet 1 5 Active gabapentin (NEURONTIN) 300 mg capsule Take 1 capsule (300 mg total) by mouth 2 (two) times a day. 60 each 1 5 Active acetaminophen (TYLENOL 8 HOUR) 650 mg 8 hr tablet Take 1 tablet (650 mg total) by mouth every 8 (eight) hours if needed for mild pain. Do not crush, chew, or split. 90 tablet 5 Active aspirin 81 mg chewable tablet Chew 1 tablet (81 mg total) 1 (one) time each day. Active amLODIPine (NORVASC) 5 mg tablet Take 1 tablet (5 mg total) by mouth 1 (one) time each day. 90 each 1 5 Active amLODIPine (NORVASC) 5 mg tablet Take 1 tablet (5 mg total) by mouth 1 (one) time each day. 90 each 1 5 02/21/20 25 Discontinu ed(Reorder ) Active Problems Problem Noted Date Diagnosed Date Acute bilateral low back pain without sciatica 1 07/31/2023 Intractable low back pain 05/29/2024 Morbid obesity with BMI of 4 0.0-44.9, adult ([facility] V24, [facility] V28) 04/22/2024 Bipolar disorder ([facility] V24, [facility] V28) 02/20 Left rib fracture 05/24/2018 [...] Encounters Date Type Department Care Team Description 02/03/2025 Telephone Adult Medicine [address] [phone] Oscar Hackett MD Medication Problem 01/21/2025 11:00 AM EDT Treatment Outpatient [address] [phone] Miguel Ibrahim, PT Chronic low back pain without sciatica, unspecified back pain laterality (Primary Dx) 01/19/2025 10:30 AM EDT Treatment Outpatient [address] [phone] Joseph Coronel, PARK SUPERINTENDENT Chronic low back pain without sciatica, unspecified back pain laterality (Primary Dx) 01/15/2025 1:00 PM EDT Treatment Outpatient [address] [phone] Miguel Ibrahim, PT Chronic low back pain without sciatica, unspecified back pain laterality (Primary Dx) 01/14/2025 12:08 PM EDT Anesthesia Event [facility] [address] [place] [address] Britni Mcghee MD 01/14/2025 11:20 AM EDT - 01/14/2025 11:59 PM EDT Hospital Encounter [facility] [address] [place] [address] Mariah Bazzi MD Steele, Matthew G, CRNA Kriz, Petra, MD Colon cancer screening Discharge Disposition: Home or Self Care 01/12/2025 11:00 AM EDT Treatment Outpatient [address] [phone] Miguel Ibrahim, PT Chronic low back pain without sciatica, unspecified back pain laterality (Primary Dx) 01/08/2025 10:30 AM EDT Treatment Outpatient [address] [place] [phone] Miguel Ibrahim, PT Chronic low back pain without sciatica, unspecified back pain laterality (Primary Dx) 01/07/2025 2:45 PM EDT Office Visit Adult [address] [phone] Narda Mckenna PA Chronic low back pain without sciatica, unspecified back pain laterality (Primary Dx); Osteopenia, unspecified location; Sweating abnormality 01/05/2025 10:30 AM EDT Treatment Outpatient [address] [phone] Joseph Coronel, PARK SUPERINTENDENT Chronic low back pain without sciatica, unspecified back pain laterality (Primary Dx) 12/25/2024 10:30 AM EDT Treatment Outpatient [address] [phone] Miguel Ibrahim, PT Chronic low back pain without sciatica, unspecified back pain laterality (Primary Dx) 12/22/2024 10:30 AM EDT Treatment Outpatient [address] [phone] Joseph Coronel, PARK SUPERINTENDENT Chronic low back pain without sciatica, unspecified back pain laterality (Primary Dx) 12/19/2024 10:30 AM EDT Treatment Outpatient [address] [phone] Joseph Coronel, PARK SUPERINTENDENT Chronic low back pain without sciatica, unspecified back pain laterality (Primary Dx) 12/16/2024 10:30 AM EDT Treatment Outpatient [address] [phone] Miguel Ibrahim, PT Chronic low back pain without sciatica, unspecified back pain laterality (Primary Dx) 12/12/2024 10:00 AM EDT Treatment Outpatient [address] [phone] Joseph Coronel, PARK SUPERINTENDENT 12/08/2024 10:00 AM EDT Treatment Outpatient [address] [phone] Joseph Coronel, PARK SUPERINTENDENT Chronic low back pain without sciatica, unspecified back pain laterality (Primary Dx) 12/05/2024 9:30 AM EDT Treatment Outpatient [address] [phone] Joseph Coronel, PARK SUPERINTENDENT Chronic low back pain without sciatica, unspecified back pain laterality (Primary Dx) 12/01/2024 9:00 AM EDT Treatment Outpatient [address] [phone] Joseph Coronel, PARK SUPERINTENDENT Chronic low back pain without sciatica, unspecified back pain laterality (Primary Dx) 11/28/2024 1:30 PM EDT Evaluation Outpatient [address] [phone] Miguel Ibrahim, PT Chronic low back pain without sciatica, unspecified back pain laterality (Primary Dx) 11/28/2024 Plan of Care Documentation Outpatient [facility] - [address] [phone] from Last 3 Months Immunizations Name Administration [...] PROCEDURE: HISTORICAL TUBAL LIGATION COLONOSCOPY 02/04/2001 PROCEDURE: CA COLONOSCOPY FLX DX W/COLLJ SPEC WHEN PFRMD; COMMENT: Negative, Dr. Ross COLONOSCOPY 10/11/2010 PROCEDURE: CA COLONOSCOPY FLX DX W/COLLJ SPEC WHEN PFRMD; COMMENT: Normal. OTHER SURGICAL HISTORY PROCEDURE: CA OPEN TX TRANS-SCAPHOPERILUNAR FRACTURE DISLC; COMMENT: Left 04/04 OTHER SURGICAL HISTORY PROCEDURE: CA NEPHROSTOMY NEPHROTOMY W/DRAINAGE; COMMENT: as a child [...] D X:Essential hypertension, benign Hypercholesteremia DX:Hyperchole steremia History of ETOH abuse Family History Medical History Relation Name Comments [...] Not Answered Alcohol Use Standard Drinks/Week Comments Not Currently 0 (1 standard drink = 0.6 oz pur e alcohol) QUIT DRINKING IN 2023 Housing Instability Answer Date Recorde d Are [...] for your loved ones. For example, child welfare worker or elderly care for an older adult? [...] Safety Answer Date Record ed Physical Abuse 01/14/2025 Verbal Abuse 01/14/2025 Comments No Sex and Gender Information Value Date Recorded Sex Assigned at Female 06/13/2024 1:42 PM EST Legal Sex Female 2:22 PM EST Gender Identity Female 06/13/2024 1:42 PM EST Sexual Orientation Straight 06/13/2024 1: 42 PM EST Obstetrics History Last Filed Vital Signs Vital Sign Reading Time Taken Comments Blood Pressure 104/62 01/14/2025 12:56 PM EDT Pulse 86 01/14/2025 12:56 PM EDT Temperature 36.3 C (97.3 F) 01/14/2025 12:36 PM EDT Respiratory Rate 16 01/14/2025 12:56 PM EDT Oxygen Saturation 96% 01/14/2025 12:56 PM EDT Inhaled Oxygen Concentration - - Weight 76.7 kg (169 lb) 01/14/2025 11:45 AM EDT Height 157.5 cm (5' 2 ) 01/14/2025 11:45 AM EDT Body Mass Index 30.91 01/14/2025 11:45 AM EDT Plan of Treatment Upcoming Encounters Date Type Department Care Team (Late st Contact Info) Description 04/27/2025 1:00 PM EDT Office Visit Adult Medicine [address] [phone] Oscar Hackett MD [address] [place] [phone] 10/15/2025 2:00 PM EDT Office Visit Adult Medicine [address] [phone] Oscar Hackett MD [address] [place] [phone] Health Maintenance Due Date Last Done Comments RSV Immunization Adult Patients (1 - Risk 60-74 years 1-dose series) 2015 Cervical Cancer Screening: Pap Smear 08/08/2020 08/08/2019, 08/08/2019, 08/08/2019 Medicare Annual Wellness Visit 07/01/2022 Breast Cancer Screening 01/26/2023 01/27/20, 06/12/2019, 05/24/2018, Additional history exists COVID-19 Vaccine ( - season) 2024 12/11/2020, 11/13/2020 Depression Screening 07/23/2024 06/25/2024 Influenza Vaccine (#1) 2025 , 05/29/2022, 05/03/2021, Additional history exists Pneumococcal Vaccine: 50+ Years (3 of 3 - PCV20 or PCV21) 09/15/2025 09/15/2020, 05/21/2015, 03/02/2014 Social Influencers of Health Screening 10/13/2025 10/13/2024 Hypertension/CHF/CAD Annual BMP Blood Test 01/07/2026 01/07/2025, 10/13/2024, 07/01/2024, Additional history exists Falls Risk Assessment 01/14/2026 01/14/2025, 024 DTaP,Tdap,and Td Vaccines (3 - Td or Tdap) 02/09/2028 02/08/2018, 04/19/2007 Cholesterol Screening (Lipid Panel) 01/07/2030 01/07/2025, 10/13/2024, 06/12/2024, Additional history exists Colorectal Cancer Screening: Colonoscopy 01/14/2030 01/14/2025 Osteoporosis Screening (Bone Density Screening) 10/28/2034 10/28/2024, [...] on patient's age to complete this topic Medical Devices Implanted Type Area Avionics Test Technician Device Identifier Shelf Expiration Date Model / Serial / Lot Left Wrist Left: Wrist Procedures Procedure Name Priority Date/Time Associated Diagnosis Comments COLONOSCOPY Routine 01/14/2025 12:35 PM EDT Colon cancer screening TISSUE EXAM Routine 01/14/2025 12:20 PM EDT Colon cancer screening CBC WITH AUTO DIFFERENTIAL Routine 01/07/2025 3:25 PM EDT Polypharmacy THYROID STIMULATING HORMONE WITH REFLEX TO FREE T4 AND FREE T3 Routine 01/07/2025 3:25 PM EDT Sweating abnormality COMPREHENSIVE METABOLIC PANEL Routine 01/07/2025 3:25 PM EDT Polypharmacy THYROID STIMULATING HORMONE Routine 01/07/2025 3:25 PM EDT Polypharmacy CBC AND DIFFERENTIAL Routine 01/07/2025 3:25 PM EDT Polypharmacy LIPID PANEL WITH REFLEX TO DIRECT LDL Routine 01/07/2025 3:25 PM EDT Polypharmacy VALPROIC ACID LEVEL, TOTAL Routine 01/07/2025 3:25 PM EDT Polypharmacy BD BONE DENSITY DXA AXIAL SKELETON Routine 10/28/2024 10:54 AM EDT Compression fracture of L5 vertebra with routine healing, subsequent encounter Osteopenia, unspecified location FALLS RISK ASSESSMENT Routine 02/20/2024 SCREENING MAMMOGRAPHY BI 2-VIEW BREAST INC CAD Routine 01/26/2021 3:40 PM EDT Encounter for screening mammogram for malignant neoplasm of breast PAP SMEAR Routine 08/08/2019 HEPATITIS C SCREENING Routine 03/30/2017 from Last 3 Months or Most Recently Relevant to Health Maintenance Results * COLONOSCOPY Anesthesia - MAC; [facility] ENDOSCOPY (01/14/2025 12:35 PM EDT) Anatomical Region Laterality Modality Endoscopy 01/14/2025 12:0 9 PM EDT Impressions 01/14/2025 12:34 PM EDT - Three diminutive polyps in the transverse colon, in the ascending colon and in the cecum, removed with a jumbo cold forceps. Resected and retrieved. - Two 7 to 9 mm polyps in the sigmoid colon and in the transverse colon, removed with a cold snare. Resected and retrieved. - Diverticulosis in the sigmoid colon. - Internal hemorrhoids. Recommendation: - Await pathology results. - Repeat colonoscopy in 5 years for surveillance. Narrative 01/14/2025 12:34 PM EDT [facility] GI Patient Name: Renetta Reynolds Procedure Date: 01/14/2025 12:09 PM Date of : 1955 Age: 69 Gender: Female Note Status: Finalized Attending MD: Mariah Bazzi MD, Procedure Date No Time: 01/14/2025 Procedure: Colonoscopy Indications: Screening for colorectal malignant neoplasm Providers: Mariah Bazzi MD Referring MD: Mariah Bazzi MD Medicines: Monitored Anesthesia Care Complications: No immediate complications. Estimated blood loss: Minimal. Estimated Blood Loss: Estimated blood loss was minimal. Procedure: Pre-Anesthesia Assessment: - Prior to the procedure, a History and Physical was performed, and patient medications and allergies were reviewed. The patient is competent. The risks and benefits of the procedure and the sedation options and risks were discussed with the patient. All questions were answered and informed consent was obtained. Patient identification and proposed procedure were verified by the physician, the nurse, the etcher aircraft and the electromechanical assembly technician in the pre-procedure area in the endoscopy suite. Mental Status Examination: alert and oriented. Airway Examination: normal oropharyngeal airway and neck mobility. Respiratory Examination: clear to auscultation. CV Examination: normal. Prophylactic Antibiotics: The patient does not require prophylactic antibiotics. Prior Anticoagulants: The patient has taken no anticoagulant or antiplatelet agents. ASA Grade Assessment: III - A patient with severe systemic disease. After reviewing the risks and benefits, the patient was deemed in satisfactory condition to undergo the procedure. The anesthesia plan was to use monitored anesthesia care (MAC). Immediately prior to administration of medications, the patient was re-assessed for adequacy to receive sedatives. The heart rate, respiratory rate, oxygen saturations, blood pressure, adequacy of pulmonary ventilation, and response to care were monitored throughout the procedure. The physical status of the patient was re-assessed after the procedure. After I obtained informed consent, the scope was passed under direct vision. Throughout the procedure, the patient's blood pressure, pulse, and oxygen saturations were monitored continuously. The Colonoscope was introduced through the anus and advanced to the cecum, identified by appendiceal orifice and ileocecal valve. The colonoscopy was performed without difficulty. The patient tolerated the procedure well. The quality of the bowel preparation was good. Findings: The perianal and digital rectal examinations were normal. Three sessile polyps were found in the transverse colon, ascending colon and cecum. The polyps were diminutive in size. These polyps were removed with a jumbo cold forceps. Resection and retrieval were complete. Estimated blood loss was minimal. Two sessile polyps were found in the sigmoid colon and transverse colon. The polyps were 7 to 9 mm in size. These polyps were removed with a cold snare. Resection and retrieval were complete. Estimated blood loss was minimal. Multiple small-mouthed diverticula were found in the sigmoid colon. Internal hemorrhoids were found during retroflexion. The hemorrhoids were Grade I (internal hemorrhoids that do not prolapse) and Grade II (internal hemorrhoids that prolapse but reduce spontaneously). Procedure Code(s): --- Professional --- 34327, Colonoscopy, flexible; with removal of tumor(s), polyp(s), or other lesion(s) by snare technique 23565, 59, Colonoscopy, flexible; with biopsy, single or multiple Diagnosis Code(s): --- Professional --- D12.2, Benign neoplasm of ascending colon D12.0, Benign neoplasm of cecum D12.5, Benign neoplasm of sigmoid colon D12.3, Benign neoplasm of transverse colon (hepatic flexure or splenic flexure) CPT copyright 2020 [employer]. All rights reserved. The codes documented in this report are preliminary and upon weather anchor review may be revised to meet current compliance requirements. Mariah Bazzi MD 01/14/2025 12:34:03 PM This report has been signed electronically.Mariah Bazzi MD Number of Addenda: 0 Note Initiated On: 01/14/2025 12:09 PM Scope Withdrawal Time: 0 hours 10 minutes 24 seconds Scope In: 12:13:24 PM Scope Out: 12:32:05 PM Endoscopy Department at [facility] - [address] [place] [phone] Procedure Note Mariah Bazzi MD - 01/14/2025 [facility] GI Patient Name: Renetta Reynolds Procedure Date: 01/14/2025 12:09 PM Date of : 1955 Age: 69 Gender: Female Note Status: Finalized Attending MD: Mariah Bazzi MD, Procedure Date No Time: 01/14/2025 Procedure: Colonoscopy Indications: Screening for colorectal malignant neoplasm Providers: Mariah Bazzi MD Referring MD: Mariah Bazzi MD Medicines: Monitored Anesthesia Care Complications: No immediate complications. Estimated blood loss: Minimal. Estimated Blood Loss: Estimated blood loss was minimal. Procedure: Pre-Anesthesia Assessment: - Prior to the procedure, a History and Physicalwas performed, and patient medications and allergieswere reviewed. The patient is competent. The risks and benefits of the procedure and the sedation optionsand risks were discussed with the patient. Allquestions were answered and informed consent was obtained. Patient identification and proposed procedure were verified by the physician, the nurse, theanesthetist and the electromechanical assembly technician in the pre-procedure area in the endoscopy suite. Mental Status Examination: alertand oriented. Airway Examination: normal oropharyngeal airway and neck mobility. Respiratory Examination: clear to auscultation. CV Examination: normal. Prophylactic Antibiotics: The patient does notrequire prophylactic antibiotics. Prior Anticoagulants: The patient has taken no anticoagulant or antiplatelet agents. ASA Grade Assessment: III - A patient with severe systemic disease. After reviewing the risksand benefits, the patient was deemed in satisfactory condition to undergo the procedure. The anesthesia plan was to use monitored anesthesia care (MAC). Immediately prior to administration of medications, the patient was re-assessed for adequacy to receive sedatives. The heart rate, respiratory rate, oxygen saturations, blood pressure, adequacy of pulmonary ventilation, and response to care were monitored throughout the procedure. The physical status ofthe patient was re-assessed after the procedure. After I obtained informed consent, the scope was passed under direct vision. Throughout theprocedure, the patient's blood pressure, pulse, and oxygen saturations were monitored continuously. The Colonoscope was introduced through the anus and advanced to the cecum, identified by appendiceal orifice and ileocecal valve. The colonoscopy was performed without difficulty. The patient tolerated the procedure well. The quality of the bowel preparation was good. Findings: The perianal and digital rectal examinations were normal. Three sessile polyps were found in the transverse colon, ascending colon and cecum. The polyps were diminutive in size. These polyps were removed witha jumbo cold forceps. Resection and retrieval were complete. Estimated blood loss was minimal. Two sessile polyps were found in the sigmoid colonand transverse colon. The polyps were 7 to 9 mm insize. These polyps were removed with a cold snare.Resection and retrieval were complete. Estimated blood losswas minimal. Multiple small-mouthed diverticula were found inthe sigmoid colon. Internal hemorrhoids were found duringretroflexion. The hemorrhoids were Grade I (internal hemorrhoids that do not prolapse) and Grade II (internal hemorrhoids that prolapse but reducespontaneously). Procedure Code(s): --- Professional --- 79226, Colonoscopy, flexible; with removal of tumor(s), polyp(s), or other lesion(s) by snare technique 50023, 59, Colonoscopy, flexible; with biopsy,single or multiple Diagnosis Code(s): --- Professional --- D12.2, Benign neoplasm of ascending colon D12.0, Benign neoplasm of cecum D12.5, Benign neoplasm of sigmoid colon D12.3, Benign neoplasm of transverse colon (hepatic flexure or splenic flexure) CPT copyright 2020 [employer]. All rights reserved. The codes documented in this report are preliminary and upon weather anchor reviewmay be revised to meet current compliance requirements. Mariah Bazzi MD 01/14/2025 12:34:03 PM This report has been signed electronically.Mariah Bazzi MD Number of Addenda: 0 Note Initiated On: 01/14/2025 12:09 PM Scope Withdrawal Time: 0 hours 10 minutes 24 seconds Scope In: 12:13:24 PM Scope Out: 12:32:05 PM Endoscopy Department at [facility] - [address] [place] [phone] IMPRESSION: - Three diminutive polyps in the transverse colon, in the ascending colon and in the cecum, removed witha jumbo cold forceps. Resected and retrieved. - Two 7 to 9 mm polyps in the sigmoid colon and inthe transverse colon, removed with a cold snare.Resected and retrieved. - Diverticulosis in the sigmoid colon. - Internal hemorrhoids. Recommendation: - Await pathology results. - Repeat colonoscopy in 5 years for surveillance. Mariah Bazzi MD GI~PROCEDURE ORDERABLES Fin al Result * Tissue exam (01/14/2025 12:20 PM EDT) Final Diagnosis A. Large Intestine, Right/Ascending Colon, polyp x1: - Colonic mucosa with no specific pathologic changes. - Negative for dysplasia. B. Large Intestine, Cecum, polyp x1: - Tubular adenoma. C. Large Intestine, Transverse Colon, polyps x2: - Tubular adenoma(s). D. Large Intestine, Sigmoid Colon, polyp x1: - Tubular adenoma. 01/15/2025 12:54 PM EDT [facility] Gross Description A. Large Intestine, Right/Ascending Colon, polyp x1: Labeled ascend colon polyp x 1 . Received in formalin, is an approximately 0.4 cm in greatest diameter soft to rubbery, jim-pink to red, polypoid tissue fragment, inked green at the margin, which is wrapped in paper and submitted in toto in one cassette, one piece, multiple levels. B. Large Intestine, Cecum, polyp x1: Labeled colon, cecum polyp x 1 . Received in formalin, is an approximately 0.3 cm in greatest diameter soft to rubbery, jim-pink to red, polypoid tissue fragment, inked green at the margin, which is wrapped in paper and submitted in toto in one cassette, one piece, multiple levels. C. Large Intestine, Transverse Colon, polyp x2: Labeled trans colon polyp x 2 . Received in formalin, are seven irregular soft to rubbery, jim-pink to red, polypoid tissue fragments, approximately ranging from 0.3 cm to 0.9 cm in greatest diameters, inked green at the margin, which are wrapped in paper and submitted in toto in one cassette, seven pieces, multiple levels. D. Large Intestine, Sigmoid Colon, polyp x1: Labeled sig colon polyp x 1 . Received in formalin, aggregating to one 0.9 x 0.6 x 0.4 cm, rubbery, jim-red, polypoid tissue, which is inked green at the base, bisected, wrapped in paper and submitted in entirety in one cassette, two pieces, multiple levels. hs/DG 01/15/2025 12:54 PM EDT [facility] Disclaimer Unless otherwise specified, all tissue is 10% NB formalin fixed and paraffin embedded. 01/15/2025 12:54 PM EDT [facility] Tissue Ascending colon structure / Unknown 01/14/2025 12:20 PM EDT 01/14/2025 1:10 PM EDT Tissue specimen (specimen) Cecum structure / Unknown 01/14/2025 12:21 PM EDT 01/14/2025 1:10 PM EDT Tissue specimen (specimen) Transverse colon structure / Unknown 01/14/2025 12:23 PM EDT 01/14/2025 1:10 PM EDT Tissue specimen (specimen) Sigmoid colon structure / Unknown 01/14/2025 12:29 PM EDT 01/14/2025 1:10 PM EDT Mariah Bazzi MD LAB PATHOLOGY ORDERABLES Fi nal Result Performing Organization Address [facility]/ZIP Co de Phone Number [facility] [address] [place] [address], [place] [phone] * Thyroid stimulating hormone with reflex to free t4 and free t3 (01/07/2025 3:25 PM EDT) [facility] [address] TSH 1.57 0.40 - 4.00 mcIU/mL LAB CHEMISTRY METHOD 01/07/2025 7:24 PM EDT [facility] Blood Venous blood specimen / Unknown Venipuncture / Unknown 01/07/2025 3:25 PM EDT 01/07/2025 3:25 PM EDT Narda CASSIDY LAB BLOOD ORDERABLES Fi nal Result Performing Organization Address [facility] Co de Phone Number [facility] [address] [place] [address], [place] [phone] * (ABNORMAL) Lipid panel with reflex to direct LDL (01/07/2025 3:25 PM EDT) [facility] [address] Cholesterol 207(H) 0 - 200 mg/dL LAB CHEMISTRY METHOD 01/07/2025 7:05 PM EDT [facility] Triglycerides 87 0 - 150 mg/dL LAB CHEMISTRY METHOD 01/07/2025 7:05 PM EDT [facility] HDL 93 >=40 mg/dL LAB CHEMISTRY METHOD 01/07/2025 7:05 PM EDT [facility] LDL Calculated 97 0 - 100 mg/dL LAB CHEMISTRY METHOD 01/07/2025 7:05 PM EDT [facility] VLDL Cholesterol Dennis 17.4 mg/dL LAB CHEMISTRY METHOD 01/07/2025 7:05 PM EDT [facility] Non HDL Chol. (LDL+VLDL) 114 <145 mg/dL LAB CHEMISTRY METHOD 01/07/2025 7:05 PM EDT [facility] Chol/HDL Ratio 2.2 0.0 - 4.4 LAB CHEMISTRY METHOD 01/07/2025 7:[address] [facility] Blood Venous blood specimen / Unknown Venipuncture / Unknown 01/07/2025 3:25 PM EDT 01/07/2025 3:25 PM EDT us Anusha Guadalupe MD LAB BLOOD ORDERABLES Fi nal Result [facility] [address] [place] [address], [place] [phone] * (ABNORMAL) CBC auto differential (01/07/2025 3:25 PM EDT) WBC 9.9 4.8 - 10.8 K/mcL LAB HEMETOLOGY METHOD 01/07/2025 7:[address] [facility] RBC 4.30 3.80 - 4.80 M/mcL LAB HEMETOLOGY METHOD 01/07/2025 7:[address] [facility] Hemoglobin 13.8 11.5 - 16.0 g/dL LAB HEMETOLOGY METHOD 01/07/2025 7:[address] [facility] Hematocrit 42.8 35.0 - 47.0 % LAB HEMETOLOGY METHOD 01/07/2025 7:[address] [facility] MCV 99.1(H) 79.0 - 98.0 FL LAB HEMETOLOGY METHOD [facility] MCH 31.9 27.0 - 32.0 pcg LAB HEMETOLOGY METHOD 01/07/2025 7:[address] [facility] MCHC 32.2 32.0 - 37.0 g/dL LAB HEMETOLOGY METHOD 01/07/2025 7:00 PM EDT [facility] RDW 13.6 11.0 - 15.0 % LAB HEMETOLOGY METHOD 01/07/2025 7:[address] [facility] Platelets 289 130 - 400 K/mcL LAB HEMETOLOGY METHOD 01/07/2025 7:[address] [facility] MPV 10.6 7.0 - 11.0 FL LAB HEMETOLOGY METHOD 01/07/2025 7:[address] [facility] NRBC 0.0 <1.0 % LAB HEMETOLOGY METHOD 01/07/2025 7:[address] [facility] NRBC Absolute 0.00 <0.10 K/mcL LAB HEMETOLOGY METHOD 01/07/2025 7:[address] [facility] Neutrophils Relative 62.5 % LAB HEMETOLOGY METHOD 01/07/2025 7:[address] [facility] Lymphocytes Relative 27.1 % LAB HEMETOLOGY METHOD 01/07/2025 7:[address] [facility] Monocytes Relative 9.1 % LAB HEMETOLOGY METHOD 01/07/2025 7:[address] [facility] Eosinophils Relative 0.8 % LAB HEMETOLOGY METHOD 01/07/2025 7:[address] [facility] Basophils Relative 0.3 % LAB HEMETOLOGY METHOD 01/07/2025 7:[address] [facility] Immature Granulocytes Relative 0.2 % LAB HEMETOLOGY METHOD 01/07/2025 7:[address] [facility] Neutrophils Absolute 6.15 1.50 - 7.00 K/mcL LAB HEMETOLOGY METHOD 01/07/2025 7:[address] [facility] Lymphocytes Absolute 2.67 1.00 - 5.00 K/mcL LAB HEMETOLOGY METHOD 01/07/2025 7:00 PM EDT [facility] Monocytes Absolute 0.90 0.20 - 1.00 K/mcL LAB HEMETOLOGY METHOD 01/07/2025 7:00 PM EDT [facility] Eosinophils Absolute 0.08 0.00 - 0.50 K/mcL LAB HEMETOLOGY METHOD 01/07/2025 7:00 PM EDT [facility] Basophils Absolute 0.03 0.00 - 0.20 K/mcL LAB HEMETOLOGY METHOD 01/07/2025 7:00 PM EDT [facility] Immature Granulocytes Absolute 0.02 0.00 - 0.03 K/[facility] LAB HEMETOLOGY METHOD 01/07/2025 7:00 PM EDT [facility] Blood Venous blood specimen / Unknown Venipuncture / Unknown 01/07/2025 3:25 PM EDT 01/07/2025 3:25 PM EDT us Anusha Guadalupe MD LAB BLOOD ORDERABLES Fi nal Result Performing Organization Address City/[facility]/ZIP Co de Phone Number [facility] [address] [place] [address], [place] [phone] * Thyroid stimulating hormone (01/07/2025 3:25 PM EDT) TSH 1.57 0.40 - 4.00 mcIU/mL LAB CHEMISTRY METHOD 01/07/2025 7:24 PM EDT [facility] Blood Venous blood specimen / Unknown Venipuncture / Unknown 01/07/2025 3:25 PM EDT 01/07/2025 3:25 PM EDT us Anusha Guadalupe MD LAB BLOOD ORDERABLES Fi nal Result [facility] [address] [place] [address], [place] [phone] * Valproic acid level, total (01/07/2025 3:25 PM EDT) Pathologist [facility] Valproic Acid, Total 80 50 - 100 mcg/mL LAB CHEMISTRY METHOD 01/07/2025 7:03 PM EDT [facility] Blood Venous blood specimen / Unknown Venipuncture / Unknown 01/07/2025 3:25 PM EDT 01/07/2025 3:25 PM EDT us Anusha Guadalupe MD LAB BLOOD ORDERABLES Fi nal Result [facility] [address] [place] [address], [place] [phone] * Comprehensive metabolic panel (01/07/2025 3:25 PM EDT) Pathologist [facility] Sodium 142 133 - 145 mmol/L LAB CHEMISTRY METHOD 01/07/2025 7:[address] [facility] Potassium 4.1 3.5 - 5.5 mmol/L LAB CHEMISTRY METHOD 01/07/2025 7:[address] [facility] Chloride 107 96 - 110 mmol/L LAB CHEMISTRY METHOD 01/07/2025 7:[address] [facility] CO2 26 21 - 32 mmol/L LAB CHEMISTRY METHOD 01/07/2025 7:[address] [facility] Anion Gap 9 3 - 11 LAB CHEMISTRY METHOD 01/07/2025 7:[address] [facility] Glucose 83 70 - 100 mg/dL LAB CHEMISTRY METHOD 01/07/2025 7:[address] [facility] BUN 16 5 - 25 mg/dL LAB CHEMISTRY METHOD 01/07/2025 7:[address] [facility] Creatinine 0.74 0.50 - 1.10 mg/dL LAB CHEMISTRY METHOD 01/07/2025 7:[address] [facility] eGFR 88 >=60 mL/min/1. 73m2 LAB CHEMISTRY METHOD 01/07/2025 7:[address] [facility] Comment:Calculation based on the Chronic Kidney Disease Epidemiology Collaboration (CKD-EPI) equation refit without adjustment for race. BUN/Creatinine Ratio 21.6 LAB CHEMISTRY METHOD 01/07/2025 7:[address] [facility] Calcium 9.9 8.5 - 10.5 mg/dL LAB CHEMISTRY METHOD 01/07/2025 7:[address] [facility] AST (SGOT) 18 10 - 42 unit/L LAB CHEMISTRY METHOD 01/07/2025 7:[address] [facility] ALT (SGPT) 21 10 - 60 unit/L LAB CHEMISTRY METHOD 01/07/2025 7:[address] [facility] Alkaline Phosphatase 86 42 - 121 unit/L LAB CHEMISTRY METHOD 01/07/2025 7:[address] [facility] Total Protein 6.9 6.0 - 8.0 g/dL LAB CHEMISTRY METHOD 01/07/2025 7:[address] [facility] Albumin 3.7 3.2 - 5.0 g/dL LAB CHEMISTRY METHOD 01/07/2025 7:[address] [facility] Total Bilirubin 0.5 0.0 - 1.4 mg/dL LAB CHEMISTRY METHOD 01/07/2025 7:[address] [facility] Blood Venous blood specimen / Unknown Venipuncture / Unknown 01/07/2025 3:25 PM EDT 01/07/2025 3:25 PM EDT us Anusha Guadalupe MD LAB BLOOD ORDERABLES Fi nal Result [facility] [address] [place] [address], * BD Bone Density DXA Axial Skeleton [...] (World Health Organization Fracture Risk Assessment) [facility] Department of Internal Medicine recommends using National [...] alternative screening schedule based on nova Martinez., [facility] August 10, 2011 for patients with osteopenia (based on hip BMD T-score) is as follows: * advanced osteopenia (T scores [...] Signed Date: 10/28/2024 11:52 ET Workstation ID: [id number] Transcribed By: Self Edit Transcribed Date: 10/28/2024 [...] Comparison exam(s): 01/26/2021. No statistically significant change in bone mineral density. [...] (World Health Organization Fracture Risk Assessment) [facility] Department of Internal Medicine recommendsusing National Osteoporosis [...] alternative screening schedule based on nova Martinez., [facility] for patients with osteopenia [...] Signed Date: 10/28/2024 11:52 ET Workstation ID: [id number] Transcribed By: Self Edit Transcribed Date: 10/28/2024 11:49 ET Oscar Hackett MD IMG DXA PROCEDURES Final Result * Falls Risk Assessment (02/20/2024) Falls Risk Assessment Abstracted Historical Provider HEALTH [...] reviewed with CAD and compared to previous. Both 2D and tomosynthesis techniques were used. The breasts are composed of fatty and fibroglandular tissue. No suspicious mass, architectural distortion or suspicious calcifications [...] RESULTING AGENCY - 08/12/2019 12:56 PM EST [id number] THINPREP PAP, IMAGED: NEGATIVE FOR SQUAMOUS INTRAEPITHELIAL LESION AND MALIGNANCY . ABUNDANT RED BLOOD CELLS ARE PRESENT. MEJIA MASSEY(ASCP) (CASE ELECTRONICALLY SIGNED 08 12 2019) RESULT OF APTIMA HIGH RISK HPV ASSAY: HIGH RISK HPV: NEGATIVE (SEROTYPES 16,18,31,33,35,39,45,51,52,56,58,59,66,68) COMPLETED ON 2019-08-11 ADEQUACY: SATISFACTORY ENDOCERVICAL/TRANSFORMATION ZONE COMPONENT PRESENT. SOURCE: THINPREP PAP HPV ANY DX: REFLEX 16 AND 18, CERVICAL, IMAGED CLINICAL INFORMATION: HPV ANY DIAGNOSIS. Z12.4, LMP 12/19/10. Elan Hernandez MD LAB CYTOLOGY ORDERABLES Final Result HISTORICAL TESTING LAB RESULTING AGENCY * Hepatitis C Screening (03/30/2017) Hepatitis C Screening Abstracted us Historical Provider MD HEALTH MAINTENANCE Final Result from Last 3 Months or Most Recently Relevant to Health Maintenance Insurance [employer] Member Subscriber Plan / Payer (Ef fective 2024-Present) Name:Renetta Reynolds Relation to Subscriber:Self Name:Renetta Reynolds Payer ID:[id number] Group ID:[id number] Type:Not on file Address: [place] [address] [address] [id number] Advance Directives * Full Code - Default [...] currently active code status orders. Care Teams Label Pinker Relationship Specialty Start Date End Date Oscar Hackett MD [address] [place] [id number] PCP - General Internal Medicine 05/27/24
--- OUTSIDE RECORDS SUMMARY | 2025-02-25 10:14 | XMS_ITS ---
Author Name [facility] Organization Unknown Care Team Organization Name Specialty Phone Email Start Date End Da te [facility] 05/30/2022 4
== END 2025-02-25 10:48 | disposition home or self-care (01) ==
LOC: HO.HOS 09:47
PROVIDERS: PCP Internal Medicine; Visit Provider Physician Assistant
DX: S92.352A Displaced fracture of fifth metatarsal bone, left foot, initial encounter for closed fracture (principal)
CPT/HCPCS: 99203; G2211

== ENCOUNTER → 2025-02-25 09:47 | Outpatient (BNVA) | payer OTHER, SELFPAY | PROVIDERS: PCP Internal Medicine; Visit Provider Physician Assistant | DX: S92.355A Nondisplaced fracture of fifth metatarsal bone, left foot, initial encounter for closed fracture (principal); X50.1XXA Overexertion from prolonged static or awkward postures, initial encounter; Y93.01 Activity, walking, marching and hiking; Y92.22 Religious institution as the place of occurrence of the external cause; Y99.9 Unspecified external cause status | CPT/HCPCS: 99202 ==

== ENCOUNTER 2025-03-11 10:56 | Emergency (ER) | payer OTHER, SELFPAY ==
--- NOTE | ~2025-03-11 | XR_ITS ---
EXAMINATION: XR CHEST CLINICAL INFORMATION: shortness of breath COMPARISON: None available. TECHNIQUE: 2 views of the chest were obtained. FINDINGS: The cardiac, hilar, and mediastinal contours are normal. The lungs are clear bilaterally. There is no pneumothorax or pleural effusion. There is no focal osseous or soft tissue abnormality. XR/XR chest 2V IMPRESSION: No active pulmonary disease. Electronically signed by: Louie Hernández MD 03/11/2025 11:47 AM EDT
[2025-03-11 11:08] VITALS: BP 146/89; PULSE 84; O2SAT 99
--- NOTE | 2025-03-11 11:24 | ED_ITS ---
HPI - General Adult General Chief complaint: Recheck/Abnormal Lab/Rx Stated complaint: ABN LABS,SENT BY PCP PER EMS Time Seen by Provider: 03/11/25 18:38 Source: patient Limitations: no limitations History of Present Illness ED Provider: Amber Clark PA-C HPI narrative: 69-year-old female with a history of hypertension, hyperlipidemia, tobacco use, presents with lab abnormalities. Patient saw her primary care provider yesterday for bilateral lower extremity swelling, she was told she had lab abnormalities, and that there was ?concerned for heart failure?. She was advised to come to the emergency department. Furthermore, the patient has been taking amlodipine, they just discontinued yesterday at her primary care visit. The patient denies chest pain, shortness of breath, orthopnea, unintentional weight gain. It is of unclear duration how long the patient has had the dependent edema. Related Data Home Medications ?Medication ?Instructions ?Recorded ?Confirmed amlodipine 5 mg tablet 5 mg PO DAILY 02/25/2502/25 atorvastatin 20 mg tablet 20 mg PO DAILY 02/25/2501/14 calcium 500 mg (as tab PO 02/25/25 02/25/25 carbonate)-vitamin D3 10 mcg (400 unit) tablet (Oyster Shell Calcium-Vitamin D3) divalproex 500 mg tablet,delayed 500 mg PO BID 5 02/25/25 release fluoxetine 40 mg capsule 40 mg PO DAILY 02/25/2501/14 gabapentin 300 mg capsule mg PO 02/25/25 02/25/25 lisinopril 20 mg tablet 20 mg PO DAILY 02/25/2501/14 multivitamin with folic acid 400 1 tab PO DAILY 02/25/25 mcg tablet (Daily-Marcelino (with folic acid)) quetiapine 100 mg tablet 100 mg PO BEDTIME 02/25/25 0 02/25/25 Previous Rx's ?Medication ?Instructions ?Recorded acetaminophen 500 mg tablet 500 mg PO Q6H PRN pain #30 tabs 11/03/24 (Tylenol Extra Strength) cyclobenzaprine 5 mg tablet 5 mg PO TID #14 tabs 11/03 lidocaine 5 % topical patch 1 patch topical DAILY #30 ea 11/03/24 acetaminophen 500 mg capsule 1,000 mg (2 x 500 mg) PO .q8 PRN 02/13/25 fever or pain #30 caps ibuprofen 600 mg tablet 600 mg PO Q8H PRN fever or p ain 02/13/25 #30 tabs oxycodone 5 mg tablet 5 mg PO Q8H PRN pain #14 tab s 02/13/25 Allergies Allergy/AdvReac Type Severity Reaction Status Date / Time No Known Allergies Allergy Verified 03/11/25 11:27 Review of Systems 2 Review of Systems: Yes all other systems are reviewed and are negative Constitutional: Constitutional: Denies fatigue, Denies fever(s) and Denies weight gain Cardiovascular: Cardiovascular: Denies chest pain, Reports leg edema and Denies dyspnea Respiratory: Respiratory: Denies dyspnea Endocrine: Endocrine: Denies fatigue [facility] Past Medical History Attestation statement: The following information was validated with the patient. Social History Social History (System 05/22/23 @ 14:51 by Yamilet Zhou) Alcohol intake: former Advance Directives: No Advance Directives Information Provided: Yes Physical Exam ED Vital Signs: Vital Signs - 24 hr 03/11/25 11:25 03/11/25 19:02 03/11/25 19:58 Temperature 97.2 F 98.2 F 99.1 F Pulse Rate 78 77 72 Respiratory Rate 16 14 16 Blood Pressure 146/80 H 139/77 139/85 Pulse Oximetry 99 98 97 Oxygen Delivery Method Room Air Room Air Room Air 03/11/25 20:24 Temperature 99.1 F Pulse Rate 72 Respiratory Rate 16 Blood Pressure 139/85 Pulse Oximetry 97 Oxygen Delivery Method Room Air BMI result Body Mass Index 31.1 Const Other: Alert well-appearing Orientation/consciousness: patient oriented x3 Resp Effort & Inspection: normal respiratory effort Cardio Other: Normal peripheral perfusion, bilateral pedal edema noted Skin Other: Warm dry no rash Neuro General: patient oriented x3, gait normal, no focal motor deficits and CN's II- XI intact bilaterally Psych Other: Cooperative Course Course Course Narrative: RME, this is a rapid medical exam performed by Heath Cassidy please refer to primary provider for complete H&P- 69-year-old female presents for evaluation of leg swelling abnormal labs. She saw doctor yesterday and had basic labs. She was told her BUN was high and could be at risk for heart failure. She does pitting edema on exam. Plan for labs, chest x-ray, EKG. She is well-appearing and has no complaints with the exception of leg swelling. She discontinued the amlodipine yesterday as well at her doctor's recommendation due to leg swelling Medical Decision Making Medical Decision Making MDM Narrative: 69-year-old female with a history of hypertension, hyperlipidemia, tobacco use, presents with lab abnormalities. Patient saw her primary care provider yesterday for bilateral lower extremity swelling, she was told she had lab abnormalities, and that there was ?concerned for heart failure?. She was advised to come to the emergency department. Furthermore, the patient has been taking amlodipine, they just discontinued yesterday at her primary care visit. The patient denies chest pain, shortness of breath, orthopnea, unintentional weight gain. It is of unclear duration how long the patient has had the dependent edema. Problem: Age, hypertension History: Per patient I have considered the following differential diagnoses: Dependent edema, DVT, cellulitis, new onset heart failure Plan: Screening labs including troponin BNP EKG and chest x-ray were obtained. There was absolutely no evidence of failure. Common things being common, given the fact that the patient is on amlodipine, this is the likely trigger for the onset of her edema. Sending with home care instructions. Labs: No leukocytosis, not anemic, no electrolyte abnormality, BNP 263, troponin negative at less than 2.7 EKG: Normal sinus rhythm, rate of 70, no ischemic changes no ectopy QTC 427 Chest x-ray:FINDINGS: The cardiac, hilar, and mediastinal contours are normal. The lungs are clear bilaterally. There is no pneumothorax or pleural effusion. There is no focal osseous or soft tissue abnormality. XR/XR chest 2V IMPRESSION: No active pulmonary disease. Lab Data 03/11/25 11:58 03/11/25 11:58 Labs: Lab Results 03/11/25 Range/Units 11:58 WBC 7.0 (4.8-10.8) X10*3/uL RBC 3.54 L (4.20-5.50) X10*6/uL Hgb 11.9 L (12.0-16.0) g/dl Hct 35.4 L (37.0-47.0) % MCV 100.0 H (80.0-98.0) fL MCH 33.6 H (27.0-33.0) pg MCHC 33.6 (31.0-35.0) g/dl RDW 13.6 (11.0-16.0) % Plt Count 244 (160-400) X10*3/uL MPV 9.8 (9.4-12.3) fL Immature Gran % (Auto) 0.3 (0.0-0.4) % Neut % (Auto) 49.2 (45-73) % Lymph % (Auto) 35.7 (20-40) % [place] % (Auto) 9.5 (2-11) % Eos % (Auto) 4.6 H (0-4) % Baso % (Auto) 0.7 (0-2) % Lymph # (Auto) 2.5 (1.2-4.9) X10*3/uL [place] # (Auto) 0.7 (0.1-1.2) X10*3/uL Eos # (Auto) 0.3 (0.0-0.4) X10*3/uL Baso # (Auto) 0.1 (0.0-0.2) X10*3/uL Abs Immat Gran (auto) 0.02 (0.00-0.03) X10*3/uL Absolute Neuts (auto) 3.5 (2.0-8.3) x10*3/uL Absolute Nucleated RBC 0.000 (0.0-0.012) X10*3/uL Nucleated RBC % (auto) 0.0 (0.0-0.2) /100WBC Sodium 142 (135-145) mmol/L Potassium 4.0 (3.3-5.1) mmol/L Chloride 108 (96-108) mmol/L Carbon Dioxide 28 (22-29) mmol/L Anion Gap 10 L (12-20) BUN 11 (9-16) mg/dL Creatinine 0.61 (0.5-1.4) mg/dL Estim Creat Clear Calc 83.6 Estimated GFR > 60 Random Glucose 79 (60-115) mg/dL Calcium 9.1 (8.4-10.2) mg/dL Total Bilirubin 0.5 (0.0-1.0) mg/dL AST 27 (5-31) U/L ALT 18 (0-31) U/L Alkaline Phosphatase 79 (39-117) U/L Troponin I High Sens < 2.7 (<3.5-17.0) ng/L B-Natriuretic Peptide 263 H (<100) pg/mL Total Protein 6.3 L (6.5-8.0) g/dL Albumin 3.9 (3.5-5.0) g/dL Lipase 29 (8-78) U/L Influenza Type A (PCR) NEGATIVE (Negative) Influenza Type B (PCR) NEGATIVE (Negative) RSV RNA Qual (PCR) NEGATIVE (Negative) SARS-CoV-2 RNA (RT-PCR) NEGATIVE (Negative) Discharge Plan Discharge Clinical Impression: Dependent edema Patient Disposition: Home, Self-Care Instructions: Leg Edema (ED) Additional Instructions: All of your screening labs were normal. Your chest x-ray is clear, there was absolutely no evidence of heart failure based on our assessment here in the emergency department. The amlodipine that you have been taking is the likely cause of your new onset dependent edema, this is a very common side effect. I also see from your paperwork that your healthcare provider discontinued this medication. In the meantime, you can purchase [id number] compression stockings, wear them while ambulating. While resting, elevate your legs. Continue to follow up with your primary care as needed. Prescriptions: No Action acetaminophen [Tylenol Extra Strength] 500 mg tablet 500 mg PO Q6H PRN (Reason: pain) Qty: 30 0RF cyclobenzaprine 5 mg tablet 5 mg PO TID Qty: 14 0RF lidocaine 5 % adhesive patch,medicated 1 patch topical DAILY Qty: 30 0RF Rx Instructions: leave on most painful area for up to 12 hrs oxycodone 5 mg tablet 5 mg PO Q8H PRN (Reason: pain) Qty: 14 0RF Rx Instructions: Partial Fill upon patient request. ibuprofen 600 mg tablet 600 mg PO Q8H PRN (Reason: fever or pain) Qty: 30 0RF acetaminophen 500 mg capsule 1,000 mg PO .q8 PRN (Reason: fever or pain) Qty: 30 0RF fluoxetine 40 mg capsule 40 mg PO DAILY atorvastatin 20 mg tablet 20 mg PO DAILY lisinopril 20 mg tablet 20 mg PO DAILY amlodipine 5 mg tablet 5 mg PO DAILY divalproex 500 mg tablet,delayed release (DR/EC) 500 mg PO BID quetiapine 100 mg tablet 100 mg PO BEDTIME gabapentin 300 mg capsule PO calcium carbonate-vitamin D3 [Oyster Shell Calcium-Vit D3] 500 mg-10 mcg (400 unit) tablet PO multivitamin with folic acid [Daily-Marcelino (with folic acid)] 400 mcg tablet 1 tab PO DAILY Interventions: ED Discharge Assessment Last Done: 03/11/25 20:24 Discharge Date/Time: 03/11/25 20:24 Print Language: French
[2025-03-11 11:25] VITALS: BP 146/80; PULSE 78; RESP 16; TEMP 36.2; O2SAT 99; BMI 31.1
--- NOTE | 2025-03-11 11:26 | ECG_ITS ---
Test Reason : ABNORMAL LAB Blood Pressure : */* mmHG Vent. Rate : 70 BPM Atrial Rate : 70 BPM P-R Int : 134 ms QRS Dur : 86 ms QT Int : 396 ms P-R-T Axes : -4 -8 -10 degrees QTcB Int : 427 ms Normal sinus rhythm Normal ECG When compared with ECG of 24-Feb-2005 00:26, Vent. rate has decreased by 40 bpm Referred By: [place] Cassidy Electronically Signed By: MARY LOU PAREDES MD
[2025-03-11 12:03] LABS: MANUAL DIFF FLAG NO
[2025-03-11 12:07] LABS: Hematocrit 35.4 % (37.0-47.0); Hemoglobin 11.9 g/dl (12.0-16.0); Imm Gran Abs Auto 0.02 X10*3/uL (0.00-0.03); Imm Gran Pct Auto 0.3 % (0.0-0.4); Lymphocytes Absolute Auto 2.5 X10*3/uL (1.2-4.9); Mean Corpuscular HGB Conc 33.6 g/dl (31.0-35.0); Mean Corpuscular Hemoglobin 33.6 pg (27.0-33.0); Mean Corpuscular Volume 100.0 fL (80.0-98.0); NRBC Abs Auto 0.000 X10*3/uL (0.0-0.012); NRBC Pct Auto 0.0 /100WBC (0.0-0.2); Platelet Count 244 X10*3/uL (160-400); Red Blood Count 3.54 X10*6/uL (4.20-5.50); White Blood Count 7.0 X10*3/uL (4.8-10.8)
[2025-03-11 12:20] LABS: Alanine Aminotransferase 18 U/L (0-31); Albumin Level 3.9 g/dL (3.5-5.0); Alkaline Phosphatase 79 U/L (39-117); Anion Gap 10 (12-20); Aspartate Amino Transferase 27 U/L (5-31); Blood Urea Nitrogen 11 mg/dL (9-16); Calcium 9.1 mg/dL (8.4-10.2); Carbon Dioxide 28 mmol/L (22-29); Chloride 108 mmol/L (96-108); Creatinine Clr Calc Pharmacy 83.6; Estimated Glomerular Filt Rate > 60; Lipase 29 U/L (8-78); Potassium 4.0 mmol/L (3.3-5.1); Sodium 142 mmol/L (135-145); Total Protein 6.3 g/dL (6.5-8.0)
--- NOTE | 2025-03-11 12:21 | MHC.EDTECH ---
ekg delay do to ekg being used by another tech nurse aware
[2025-03-11 12:26] LABS: B Type Natriuretic Peptide 263 pg/mL (<100)
[2025-03-11 12:28] LABS: Troponin-I High Sensitivity < 2.7 ng/L (<3.5-17.0)
[2025-03-11 12:47] LABS: Resp Syncy Virus RNA Qual PCR NEGATIVE (Negative); SARS COV2 PCR INHOUSE NEGATIVE (Negative)
[2025-03-11 19:02] VITALS: BP 139/77; PULSE 77; RESP 14; TEMP 36.8; O2SAT 98
--- NOTE | 2025-03-11 19:02 | PC.NURSE ---
this rn assumed care of pt, pt resting in stretcher, no acute distress noted, pt offers no complaints at this time,vss, awaiting ed provider
[2025-03-11 19:58] VITALS: BP 139/85; PULSE 72; RESP 16; TEMP 37.3; O2SAT 97
[2025-03-11 20:24] VITALS: BP 139/85; PULSE 72; RESP 16; TEMP 37.3; O2SAT 97
== END 2025-03-11 20:24 | disposition home or self-care (01) ==
PROVIDERS: Physician Assistant; Emergency Provider Emergency Medicine; PCP Internal Medicine
DX: R60.0 Localized edema (principal); I10 Essential (primary) hypertension; E78.5 Hyperlipidemia, unspecified; Z79.899 Other long term (current) drug therapy; Z72.0 Tobacco use
CPT/HCPCS: 36415; 71046; 80053; 83690; 83880; 84484; 85025; 87637; 93005; 99283; 99284

== ENCOUNTER → 2025-03-11 11:25 | Outpatient (BNV) | payer OTHER, SELFPAY | PROVIDERS: Visit Provider Radiology Diagnostic Radiology | DX: R06.02 Shortness of breath (principal) | CPT/HCPCS: 71046 ==

== ENCOUNTER → 2025-03-11 11:26 | Outpatient (BNV) | payer OTHER, SELFPAY | PROVIDERS: Visit Provider Internal Medicine Cardiovascular Disease | DX: R79.9 Abnormal finding of blood chemistry, unspecified (principal) | CPT/HCPCS: 93010 ==

== ENCOUNTER 2025-04-01 09:54 | Outpatient (REF) | payer OTHER, SELFPAY ==
--- NOTE | ~2025-04-01 | XR_ITS ---
EXAMINATION: XR FOOT, LEFT CLINICAL INFORMATION: M79.672 - Pain in left foot , follow-up fracture COMPARISON: None available. TECHNIQUE: AP, lateral, and oblique views of the left foot. FINDINGS: There is diffuse osteopenia. Again seen is avulsion fracture base of the fifth metatarsal. Fracture line extends to the tarsometatarsal joint. There is faint new bone formation across the fracture consistent with healing. There is a new fracture line obliquely extending from the region of the aforementioned fracture to the medial base of the fifth metatarsal, just distal to the intermetatarsal joint. It demonstrates patchy sclerosis and periosteal new bone formation. Small enthesophyte is present on calcaneus at the Achilles insertion. XR/XR foot LT min 3V IMPRESSION: There is a diaphyseal stress fracture involving the base of the fifth metatarsal that was not evident on the prior x-ray. There are signs of healing. Healing fifth metatarsal avulsion fracture. Osteopenia. Electronically signed by: Renaldo Valdez MD 04/01/2025 12:00 PM EDT
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
--- OUTSIDE RECORDS SUMMARY | 2025-04-02 11:48 | XMS_ITS | Clinical Summary ---
Author Organization [facility] Address [address] [place] [address] Phone Care Team Providers Care Senior Compensation Consultant Name Role Phone Oscar Hackett MD Primary Care Provider Allergies No known active allergies Medications albuterol 2.5 mg /3 mL (0.083 %) nebulizer solution 12/10/19 21 Active albuterol HFA (PROAIR HFA ; PROVENTIL HFA ; VENTOLIN HFA) 90 mcg/actuation inhaler Inhale 2 Puffs into the lungs 4 times daily as needed for Cough or Wheezing. 05/29/20 22 Active divalproex (DEPAKOTE ER) 250 mg 24 hr tablet Take 2 Tabs by mouth 2 times daily. 08/02/19 21 Active FLUoxetine (PROzac) 20 mg capsule Take 3 capsules (60 mg total) by mouth 1 (one) time each day. Active calcium carbonate-chol ecalciferol 500 mg-10 mcg (400 unit) per tablet Take 2 tablets by mouth 1 (one) time each day before breakfast. 180 tablet 1 07/01/20 24 Active atorvastatin (LIPITOR) 20 mg tablet Take 1 tablet (20 mg total) by mouth at bedtime. 90 each 1 10/14/19 25 Active aspirin 81 mg chewable tablet Chew 1 tablet (81 mg total) 1 (one) time each day. Active fluticasone propionate (FLONASE) 50 mcg/actuation nasal spray INSTILL 2 SPRAYS INTO EACH NOSTRILS EVERY DAY 16 g 4 02/28/20 25 Active lisinopril (PRINIVIL,ZEST RIL) 40 mg tablet Take 1 tablet (40 mg total) by mouth 1 (one) time each day. 90 tablet 03/10/20 25 Active acetaminophen (TYLENOL 8 HOUR) 650 mg 8 hr tablet Take 1 tablet (650 mg total) by mouth every 8 (eight) hours if needed for mild pain. Do not crush, chew, or split. 90 tablet 03/25/20 25 Active gabapentin (NEURONTIN) 300 mg capsule Take 1 capsule (300 mg total) by mouth 2 (two) times a day. 60 each 1 03/25/20 25 Active oxyCODONE (OXY-IR) 5 mg immediate release capsule Take 1 capsule (5 mg total) by mouth every 6 (six) hours if needed for severe pain. Max Daily Amount: 20 mg 15 capsule 06/13/20 24 025 Discontinued( erapy completed) lisinopriL (PRINIVIL,ZEST RIL) 20 mg tablet Take 1 tablet (20 mg total) by mouth 1 (one) time each day. 90 tablet 1 10/14/19 25 025 Discontinued gabapentin (NEURONTIN) 300 mg capsule Take 1 capsule (300 mg total) by mouth 2 (two) times a day. 60 each 1 01/08/20 25 025 Discontinued(Re order) acetaminophen (TYLENOL 8 HOUR) 650 mg 8 hr tablet Take 1 tablet (650 mg total) by mouth every 8 (eight) hours if needed for mild pain. Do not crush, chew, or split. 90 tablet 01/08/20 25 025 Discontinued(Re order) amLODIPine (NORVASC) 5 mg tablet Take 1 tablet (5 mg total) by mouth 1 (one) time each day. 90 each 1 02/21/20 25 025 Discontinued Active Problems Problem Noted Date Diagnosed Date Acute bilateral low back pain without sciatica 1 07/31/2023 Intractable low back pain 05/29/2024 Morbid obesity with BMI of 4 0.0-44.9, adult ([facility] V24, [facility] V28) 04/22/2024 Bipolar disorder ([facility] V24, [facility] V28) 02/20 Left rib fracture 05/24/2018 Overview [...] Encounters Date Type Department Care Team Description 04/02/2025 Nurse Triage [address] [phone] Oscar Hackett MD 03/30/2025 Telephone Adult [address] [phone] Oscar Hackett MD 03/25/2025 1:00 PM EDT Office Visit [address] [phone] Betsey Live NP Essential hypertension, benign (Primary Dx); Foot swelling 03/11/2025 Telephone Adult [address] [phone] Teresa Medeiros RN 03/10/2025 12:00 PM EDT - 03/10/2025 11:59 PM EDT Hospital Encounter [address] [phone] Mild intermittent asthma without complication Discharge Disposition: Home or Self Care 03/10/2025 11:00 AM EDT Office Visit [address] [phone] Joy Dunaway PA Foot swelling (Primary Dx); Essential hypertension, benign; Osteopenia, unspecified location; Mild intermittent asthma without complication 03/10/2025 Telephone Adult Medicine [address] [phone] Oscar Hackett MD 03/09/2025 Telephone Adult Medicine [address] [phone] Luba Acevedo [place] 02/27/2025 Telephone Adult Medicine [address] [phone] Oscar Hackett MD 02/03/2025 [place] Adult [address] [phone] Oscar Hackett MD 01/21/2025 11:00 AM EDT Treatment Outpatient [address] [phone] Miguel Ibrahim, PT Chronic low back pain without sciatica, unspecified back pain laterality (Primary Dx) 01/19/2025 10:30 AM EDT Treatment Outpatient [address] [phone] Joseph Coronel, DENTAL SURGERY DOCTOR Chronic low back pain without sciatica, unspecified back pain laterality (Primary Dx) 01/15/2025 1:00 PM EDT Treatment Outpatient [address] [phone] Miguel Ibrahim, PT Chronic low back pain without sciatica, unspecified back pain laterality (Primary Dx) 01/14/2025 12:08 PM EDT Anesthesia Event [facility] Endoscopy [address] [place] [phone] Britni Mcghee MD 01/14/2025 11:20 AM EDT - 01/14/2025 11:59 PM EDT Hospital Encounter [facility] Endoscopy [address] [place] [phone] Mariah Bazzi MD Steele, Matthew G, CRNA Kriz, Petra, MD Colon cancer screening Discharge Disposition: Home or Self Care 01/12/2025 11:00 AM EDT Treatment Outpatient [address] [phone] Miguel Ibrahim, PT Chronic low back pain without sciatica, unspecified back pain laterality (Primary Dx) 01/08/2025 10:30 AM EDT Treatment Outpatient [address] [phone] Miguel Ibrahim, PT Chronic low back pain without sciatica, unspecified back pain laterality (Primary Dx) 01/07/2025 2:45 PM EDT Office Visit Adult [address] [phone] Narda Mckenna PA Chronic low back pain without sciatica, unspecified back pain laterality (Primary Dx); Osteopenia, unspecified location; Sweating abnormality 01/05/2025 10:30 AM EDT Treatment Outpatient [address] [phone] Joseph Coronel, DENTAL SURGERY DOCTOR Chronic low back pain without sciatica, unspecified back pain laterality (Primary Dx) from Last 3 Months Immunizations Name Administration [...] PROCEDURE: HISTORICAL TUBAL LIGATION COLONOSCOPY 02/04/2001 PROCEDURE: [place] COLONOSCOPY FLX DX W/COLLJ SPEC WHEN PFRMD; COMMENT: Negative, Dr. Ross COLONOSCOPY 10/11/2010 PROCEDURE: [place] COLONOSCOPY FLX DX W/COLLJ SPEC WHEN PFRMD; COMMENT: Normal. OTHER SURGICAL HISTORY PROCEDURE: [place] OPEN TX TRANS-SCAPHOPERILUNAR FRACTURE DISLC; COMMENT: Left 04/04 OTHER SURGICAL HISTORY PROCEDURE: [place] NEPHROSTOMY NEPHROTOMY W/DRAINAGE; COMMENT: as a child [...] care for your loved ones. For example, registered nurse maternal child or elderly care for an older adult? [...] Sign Reading Time Taken Comments Blood Pressure 134/80 03/25/2025 1:26 PM EDT Pulse 100 03/25/2025 12:59 PM EDT Temperature 36.4 C (97.5 F) 03/25/2025 12:59 PM EDT Respiratory Rate 18 03/25/2025 12:59 PM EDT Oxygen Saturation 97% 03/25/2025 12:59 PM EDT Inhaled Oxygen Concentration - - Weight 73.5 kg (162 lb) 03/25/2025 12:59 PM EDT Height 157.5 cm (5' 2 ) 03/25/2025 12:59 PM EDT Body Mass Index 29.63 03/25/2025 12:59 PM EDT Plan of Treatment Upcoming Encounters Date Type Department Care Team (Late st Contact Info) Description 04/27/2025 1:00 PM EDT Office Visit Adult Medicine [address] [phone] Oscar Hackett MD [address] [place] [address] 10/15/2025 2:00 PM EDT Office Visit Adult Medicine [address] [phone] Oscar Hackett MD [address] [place] [address] Health Maintenance Due Date Last Done Comments RSV Immunization Adult Patients (1 - Risk 60-74 years 1-dose series) 2015 Cervical Cancer Screening: Pap Smear 08/08/2020 08/08/2019, 08/08/2019, 08/08/2019 Medicare Annual Wellness Visit 07/01/2022 Breast Cancer Screening 01/26/2023 01/27/20, 06/12/2019, 05/24/2018, Additional history exists Depression Screening 07/23/2024 06/25/2024 COVID-19 Vaccine (3 - 2024- season) 2025 12/11/2020, 11/13/2020 Influenza Vaccine (#1) 2025 , 05/29/2022, 05/03/2021, Additional history exists Pneumococcal Vaccine: 50+ Years (3 of 3 - PCV20 or PCV21) 09/15/2025 09/15/2020, 05/21/2015, 03/02/2014 Social Influencers of Health Screening 10/13/2025 10/13/2024 Falls Risk Assessment 01/14/2026 01/14/2025, 024 Hypertension/CHF/CAD Annual BMP Blood Test 03/10/2026 03/10/2025, 01/07/2025, 10/13/2024, Additional history exists DTaP,Tdap,and Td Vaccines (3 - Td or [...] this topic Medical Devices Implanted Type Area Curtain Hemmer Automatic Device Identifier Shelf Expiration Date Model / Serial / Lot Left Wrist Left: Wrist Procedures Procedure Name Priority Date/Time Associated Diagnosis Comments XR CHEST 2 VIEWS Routine 03/10/2025 12:0 8 PM EDT Mild intermittent asthma without complication CBC WITH AUTO DIFFERENTIAL Routine 03/10/2025 11:57 AM EDT Foot swelling CBC AND DIFFERENTIAL Routine 03/10/2025 11:57 AM EDT Foot swelling COMPREHENSIVE METABOLIC PANEL Routine 03/10/2025 11:57 AM EDT Foot swelling B-TYPE NATRIURETIC PEPTIDE Routine 03/10/2025 11:57 AM EDT Foot swelling COLONOSCOPY Routine 01/14/2025 12:35 PM EDT Colon [...] Recently Relevant to Health Maintenance Results * XR Chest 2 Views (03/10/2025 12:08 PM EDT) Anatomical Region Laterality Modality Body Radiographic Allison ging 03/10/2025 3:48 PM EDT Impressions 03/10/2025 3:56 PM EDT No evidence of an acute chest process. Age indeterminate mild compression deformity at L2. POS - [id number] -------- FINAL REPORT -------- Dictated By: Natasha Rueda Dictated Date: 03/10/2025 15:48 ET Assigned Physician: Natasha Rueda Reviewed and Electronically Signed By: Natasha Rueda Signed Date: 03/10/2025 15:56 ET Workstation ID: [id number] Transcribed By: Self Edit Transcribed Date: 03/10/2025 15:48 ET Narrative 03/10/2025 3:56 PM EDT EXAM: Chest x-ray HISTORY: Productive cough. History of tobacco use. Asthma. COMPARISON: 02/17/2023, 07/08/2015, and 12/04/2013 FINDINGS: PA and lateral views of the chest were performed. No focal infiltrate, pleural effusion, or evidence of pulmonary edema. Heart is not enlarged. Mediastinal contours are stable. Tortuous thoracic aorta again noted. Stable moderate compression deformity of T5 and mild involving T4. Mild superior endplate compression deformity of L2. Multilevel bridging endplate osteophytes. Procedure Note Natasha Rueda MD - 03/10/2025 EXAM: Chest x-ray HISTORY: Productive cough. History of tobacco use. Asthma. COMPARISON: 02/17/2023, 07/08/2015, and 12/04/2013 FINDINGS: PA and lateral views of the chest were performed. No focal infiltrate, pleural effusion, or evidence of pulmonary edema.Heart is not enlarged. Mediastinal contours are stable. Tortuous thoracicaorta again noted. Stable moderate compression deformity of T5 and mildinvolving T4. Mild superior endplate compression deformity of L2.Multilevel bridging endplate osteophytes. IMPRESSION: No evidence of an acute chest process. Age indeterminate mild compressiondeformity at L2. POS - [id number] -------- FINAL REPORT -------- Dictated By: Natasha Rueda Dictated Date: 03/10/2025 15:48 ET Assigned Physician: Natasha Rueda Reviewed and Electronically Signed By: Natasha Rueda Signed Date: 03/10/2025 15:56 ET Workstation ID: [id number] Transcribed By: Self Edit Transcribed Date: 03/10/2025 15:48 ET us Joy CASSIDY IMG XR PROCEDURES Final Resul t * (ABNORMAL) CBC auto differential (03/10/2025 11:57 AM EDT) Only the most recent of2 resultswithin the time period is included. WBC 7.6 4.8 - 10.8 K/mcL LAB HEMETOLOGY METHOD 03/10/2025 2:[address] [facility] RBC 3.80 3.80 - 4.80 M/mcL LAB [facility] Hemoglobin 12.7 11.5 - 16.0 g/dL LAB HEMETOLOGY METHOD [facility] Hematocrit 37.8 35.0 - 47.0 % LAB HEMETOLOGY METHOD 03/10/2025 2:29 PM [facility] MCV 99.5(H) 79.0 - 98.0 FL LAB HEMETOLOGY METHOD 03/10/2025 2:29 PM [facility] MCH 33.4(H) 27.0 - 32.0 pcg LAB HEMETOLOGY METHOD 03/10/2025 2:29 PM [facility] MCHC 33.6 32.0 - 37.0 g/dL LAB HEMETOLOGY METHOD 03/10/2025 2:29 PM [facility] RDW 13.5 11.0 - 15.0 % LAB HEMETOLOGY METHOD 03/10/2025 2:29 PM [facility] Platelets 291 130 - 400 K/mcL LAB HEMETOLOGY METHOD 03/10/2025 2:29 PM [facility] MPV 10.3 7.0 - 11.0 FL LAB HEMETOLOGY METHOD 03/10/2025 2:29 PM [facility] NRBC 0.0 <1.0 % LAB HEMETOLOGY METHOD 03/10/2025 2:29 PM [facility] NRBC Absolute 0.00 <0.10 K/mcL LAB HEMETOLOGY METHOD 03/10/2025 2:29 PM [facility] Neutrophils Relative 52.7 % LAB HEMETOLOGY METHOD 03/10/2025 2:29 PM [facility] Lymphocytes Relative 35.3 % LAB HEMETOLOGY METHOD 03/10/2025 2:29 PM [facility] Monocytes Relative 7.2 % LAB HEMETOLOGY METHOD 03/10/2025 2:29 PM [facility] Eosinophils Relative 3.7 % LAB HEMETOLOGY METHOD 03/10/2025 2:29 PM [facility] Basophils Relative 0.8 % LAB HEMETOLOGY METHOD 03/10/2025 2:29 PM [facility] Immature Granulocytes Relative 0.3 % LAB HEMETOLOGY METHOD 03/10/2025 2:29 PM [facility] Neutrophils Absolute 4.01 1.50 - 7.00 K/mcL LAB HEMETOLOGY METHOD 03/10/2025 2:29 PM [facility] Lymphocytes Absolute 2.69 1.00 - 5.00 K/mcL LAB HEMETOLOGY METHOD 03/10/2025 2:29 PM [facility] Monocytes Absolute 0.55 0.20 - 1.00 K/mcL LAB HEMETOLOGY METHOD 03/10/2025 2:29 PM [facility] Eosinophils Absolute 0.28 0.00 - 0.50 K/mcL LAB HEMETOLOGY METHOD 03/10/2025 2:29 PM [facility] Basophils Absolute 0.06 0.00 - 0.20 K/mcL LAB HEMETOLOGY METHOD 03/10/2025 2:29 PM [facility] Immature Granulocytes Absolute 0.02 0.00 - 0.03 K/mcL LAB HEMETOLOGY METHOD 03/10/2025 2:29 PM [facility] Blood Venous blood specimen / Unknown Venipuncture / Unknown 03/10/2025 11:57 AM EDT 03/10/2025 11:58 AM EDT Joy CASSIDY LAB BLOOD ORDERABLES Final Re sult Performing Organization Address [facility]/ZIP Co de Phone Number [facility] [address] [place] [address], [place] [phone] * (ABNORMAL) B-type natriuretic peptide (03/10/2025 11:57 AM EDT) Pathologist [facility] BNP 176(H) <=100 pcg/mL LAB CHEMISTRY METHOD 03/10/2025 3:[address] [facility] Blood Venous blood specimen / Unknown Venipuncture / Unknown 03/10/2025 11:57 AM EDT 03/10/2025 11:58 AM EDT us Joy CASSIDY LAB BLOOD ORDERABLES Final Re sult Performing Organization Address [facility]/ZIP Co de Phone Number [facility] [address] [place] [address], [place] [phone] * Comprehensive metabolic panel (03/10/2025 11:57 AM EDT) Only the most recent of2 resultswithin the time period is included. [facility] Sodium 139 133 - 145 mmol/L LAB CHEMISTRY METHOD 03/10/2025 3:[address] [facility] Potassium 4.8 3.5 - 5.5 mmol/L LAB CHEMISTRY METHOD 03/10/2025 3:[address] [facility] Chloride 106 96 - 110 mmol/L LAB CHEMISTRY METHOD 03/10/2025 3:[address] [facility] CO2 29 21 - 32 mmol/L LAB CHEMISTRY METHOD 03/10/2025 3:[address] [facility] Anion Gap 4 3 - 11 LAB CHEMISTRY METHOD 03/10/2025 3:[address] [facility] Glucose 95 70 - 100 mg/dL LAB CHEMISTRY METHOD 03/10/2025 3:31 PM [facility] BUN 16 5 - 25 mg/dL LAB CHEMISTRY METHOD 03/10/2025 3:31 PM [facility] Creatinine 0.66 0.50 - 1.10 mg/dL LAB CHEMISTRY METHOD 03/10/2025 3:31 PM [facility] eGFR 95 >=60 mL/min/1. 73m2 LAB CHEMISTRY METHOD 03/10/2025 3:31 PM [facility] Comment:Calculation based on the Chronic Kidney Disease Epidemiology Collaboration (CKD-EPI) equation refit without adjustment for race. BUN/Creatinine Ratio 24.2 LAB CHEMISTRY METHOD 03/10/2025 3:31 PM [facility] Calcium 9.0 8.5 - 10.5 mg/dL LAB CHEMISTRY METHOD 03/10/2025 3:31 PM [facility] AST (SGOT) 23 10 - 42 unit/L LAB CHEMISTRY METHOD 03/10/2025 3:31 PM [facility] ALT (SGPT) 23 10 - 60 unit/L LAB CHEMISTRY METHOD 03/10/2025 3:31 PM [facility] Alkaline Phosphatase 102 42 - 121 unit/L LAB CHEMISTRY METHOD 03/10/2025 3:31 PM [facility] Total Protein 6.7 6.0 - 8.0 g/dL LAB CHEMISTRY METHOD 03/10/2025 3:31 PM [facility] Albumin 3.7 3.2 - 5.0 g/dL LAB CHEMISTRY METHOD 03/10/2025 3:31 PM [facility] Total Bilirubin 0.3 0.0 - 1.4 mg/dL LAB CHEMISTRY METHOD 03/10/2025 3:31 PM [facility] Blood Venous blood specimen / Unknown Venipuncture / Unknown 03/10/2025 11:57 AM EDT 03/10/2025 11:58 AM EDT Joy CASSIDY LAB BLOOD ORDERABLES Final Re sult [facility] ([facility]) [facility] [address] [place] [address], [place] [phone] * COLONOSCOPY Anesthesia - MAC; [facility] ENDOSCOPY (01/14/2025 12:35 PM EDT) Anatomical [...] for surveillance. Narrative 01/14/2025 12:34 PM EDT [facility] GI Patient Name: Renetta Reynolds Procedure Date: [...] verified by the physician, the nurse, the apprentice cosmetologist and the detail technician in the pre-procedure area in the [...] reduce spontaneously). Procedure Code(s): --- Professional --- 88405, Colonoscopy, flexible; with removal of tumor(s), polyp(s), or other lesion(s) by snare technique [id number], 59, Colonoscopy, flexible; with biopsy, single or multiple Diagnosis Code(s): --- Professional --- D12.2, Benign neoplasm of ascending colon D12.0, Benign neoplasm of cecum D12.5, Benign neoplasm of sigmoid colon D12.3, Benign neoplasm of transverse colon (hepatic flexure or splenic flexure) CPT copyright 2020 [employer]. All rights reserved. The codes documented in this report are preliminary and upon e business consultant review may be revised to meet current compliance requirements. Mariah Bazzi MD 01/14/2025 12:34:03 PM This report has been signed electronically.Mariah Bazzi MD Number of Addenda: 0 Note Initiated On: 01/14/2025 12:09 PM Scope Withdrawal Time: 0 hours 10 minutes 24 seconds Scope In: 12:13:24 PM Scope Out: 12:32:05 PM Endoscopy Department at [facility] - [address] [place] [phone] Procedure Note Mariah Bazzi MD - 01/14/2025 [facility] GI Patient Name: Renetta Reynolds Procedure Date: [...] the physician, the nurse, theanesthetist and the detail technician in the pre-procedure area in the [...] but reducespontaneously). Procedure Code(s): --- Professional --- 34720, Colonoscopy, flexible; with removal of tumor(s), polyp(s), or other lesion(s) by snare technique [id number], 59, Colonoscopy, flexible; with biopsy,single or multiple Diagnosis Code(s): --- Professional --- D12.2, Benign neoplasm of ascending colon D12.0, Benign neoplasm of cecum D12.5, Benign neoplasm of sigmoid colon D12.3, Benign neoplasm of transverse colon (hepatic flexure or splenic flexure) CPT copyright 2020 [employer]. All rights reserved. The codes documented in this report are preliminary and upon e business consultant reviewmay be revised to meet current compliance requirements. Mariah Bazzi MD 01/14/2025 12:34:03 PM This report has been signed electronically.Mariah Bazzi MD Number of Addenda: 0 Note Initiated On: 01/14/2025 12:09 PM Scope Withdrawal Time: 0 hours 10 minutes 24 seconds Scope In: 12:13:24 PM Scope Out: 12:32:05 PM Endoscopy Department at [address] [phone] IMPRESSION: - Three diminutive polyps in the [...] Repeat colonoscopy in 5 years for surveillance. us Mariah Bazzi MD GI~PROCEDURE ORDERABLES Fin al [...] - Tubular adenoma. 01/15/2025 12:54 PM EDT [facility] ([facility] Gross Description A. Large [...] multiple levels. hs/DG 01/15/2025 12:[address] [facility] Disclaimer Unless otherwise specified, all tissue is 10% NB formalin fixed and paraffin embedded. 01/15/2025 12:[address] [facility] Tissue Ascending colon structure / Unknown 01/14/2025 12:20 PM EDT 01/14/2025 1:10 PM EDT Tissue specimen (specimen) Cecum structure / Unknown 01/14/2025 12:21 PM EDT 01/14/2025 1:10 PM EDT Tissue specimen (specimen) Transverse colon structure / Unknown 01/14/2025 12:23 PM EDT 01/14/2025 1:10 PM EDT Tissue specimen (specimen) Sigmoid colon structure / Unknown 01/14/2025 12:29 PM EDT 01/14/2025 1:10 PM EDT us Mariah Bazzi MD LAB PATHOLOGY ORDERABLES Fi nal Result [facility] [address] [place] [address], * Thyroid stimulating hormone with reflex to free t4 and free t3 (01/07/2025 3:25 PM EDT) TSH 1.57 0.40 - 4.00 mcIU/mL LAB CHEMISTRY METHOD 01/07/2025 7:[address] [facility] Blood Venous blood specimen / Unknown Venipuncture / Unknown 01/07/2025 3:25 PM EDT 01/07/2025 3:25 PM EDT us Narda CASSIDY LAB BLOOD ORDERABLES Fi nal Result [facility] [address] [place] [address], [place] [phone] * (ABNORMAL) Lipid panel with reflex to direct LDL (01/07/2025 3:25 PM EDT) Cholesterol 207(H) 0 - 200 mg/dL LAB CHEMISTRY METHOD 01/07/2025 7:[address] [facility] Triglycerides 87 0 - 150 mg/dL LAB CHEMISTRY METHOD 01/07/2025 7:05 PM [facility] HDL 93 >=40 mg/dL LAB CHEMISTRY METHOD 01/07/2025 7:05 PM [facility] LDL Calculated 97 0 - 100 mg/dL LAB CHEMISTRY METHOD 01/07/2025 7:05 PM [facility] VLDL Cholesterol Dennis 17.4 mg/dL LAB CHEMISTRY METHOD 01/07/2025 7:[address] [facility] Non HDL Chol. (LDL+VLDL) 114 <145 mg/dL LAB CHEMISTRY METHOD 01/07/2025 7:05 PM [facility] Chol/HDL Ratio 2.2 0.0 - 4.4 LAB CHEMISTRY METHOD 01/07/2025 7:05 PM [facility] Blood Venous blood specimen / Unknown Venipuncture / Unknown 01/07/2025 3:25 PM EDT 01/07/2025 3:25 PM EDT us Anusha Guadalupe MD LAB BLOOD ORDERABLES Fi nal Result [facility] [address] [place] [address], [place] [phone] * Thyroid stimulating hormone (01/07/2025 3:25 PM EDT) Pathologist [facility] TSH 1.57 0.40 - 4.00 mcIU/mL LAB CHEMISTRY METHOD 01/07/2025 7:[address] [facility] Blood Venous blood specimen / Unknown Venipuncture / Unknown 01/07/2025 3:25 PM EDT 01/07/2025 3:25 PM EDT us Anusha Guadalupe MD LAB BLOOD ORDERABLES Fi nal Result Performing Organization Address [facility]/ZIP Co de Phone Number [facility] [address] [place] [address], [place] [phone] * Valproic acid level, total (01/07/2025 3:25 PM EDT) [facility] Valproic Acid, Total 80 50 - 100 mcg/mL LAB CHEMISTRY METHOD 01/07/2025 7:[address] [facility] Blood Venous blood specimen / Unknown Venipuncture / Unknown 01/07/2025 3:25 PM EDT 01/07/2025 3:25 PM EDT us Anusha Guadalupe MD LAB BLOOD ORDERABLES Fi nal Result [facility] [address] [place] [address], [place] [phone] * BD Bone Density DXA Axial Skeleton [...] (World Health Organization Fracture Risk Assessment) [facility] Department of Internal Medicine recommends using [...] screening schedule based on nova Martinez., [facility] August 10, 2011 for patients [...] Signed Date: 10/28/2024 11:52 ET Workstation ID: [id number] Transcribed By: Self Edit Transcribed Date: 10/28/2024 [...] (World Health Organization Fracture Risk Assessment) [facility] Department of Internal Medicine recommendsusing National [...] screening schedule based on nova Martinez., [facility] for patients with osteopenia [...] Signed Date: 10/28/2024 11:52 ET Workstation ID: [id number] Transcribed By: Self Edit Transcribed Date: 10/28/2024 [...] RESULTING AGENCY - 08/12/2019 12:56 PM EST [id number] THINPREP PAP, IMAGED: NEGATIVE FOR SQUAMOUS INTRAEPITHELIAL [...] C Screening (03/30/2017) Hepatitis C Screening Abstracted Historical Provider MD HEALTH MAINTENANCE Final Result from Last 3 Months or Most Recently Relevant to Health Maintenance Insurance [employer] MEDICARE Member Subscriber Plan / Payer (Ef fective 2024-Present) Name:Renetta Reynolds Relation to Subscriber:Self Name:Renetta Reynolds Payer ID:[id number] Group ID:[id number] Type:Not on file Address: [place] [address] [address] [id number] Advance Directives * Full Code - Default [...] currently active code status orders. Care Teams Senior Compensation Consultant Relationship Specialty Start Date End Date Oscar Hackett MD [address] [place] [phone] PCP - General Internal Medicine 05/27/24
--- OUTSIDE RECORDS SUMMARY | 2025-04-02 11:48 | XMS_ITS | Encounter Summary ---
Author Organization [facility] Address [address] [place] [address] Care Team Providers Care Tractor Operator Helper Name Role Phone Oscar Hackett MD Primary Care Provider [phone] Reason for Visit * Reason Onset Date Comments Conjunctivitis 03/30/2025 Sore Throat 03/30/2025 Encounter Details Date Type Department Care Team (Late st Contact Info) Description 03/30/2025 Telephone Adult Medicine [address] [phone] Oscar Hackett MD [address] [place] [address] Social History Tobacco Use Types Packs/Day Years [...] for your loved ones. For example, child care sitter or elderly care for an older adult? [...] documented in this encounter Progress Notes * Myriam Killian RN - 03/30/2025 4:56 PM EDT Called and spoke with pt. Pt c/o woke up right eye red and crusty and watery the next days about sts discharge resolved but still having watery in eyes itchy feels like something in eye. No vision problems. No swelling denies fever cough or runny nose. No pain. Offered appt for tomorrow unable needs to get transportation. Asks for appt for Sunday advised shouldn't wait that long with ?infection pt has [facility] advised to try mobile unit number given pt will try. * [place] - 03/30/2025 4:15 PM EDT Patient call requires triage: Symptoms patient is presenting: Patient stating that she has been having redness around the eye lids and both eyes are blood shot , states that she also has an itchy throat , would like to speak to nurse to get advice on what to do How long has patient had these symptoms?: 03/28/25 For ALL patients calling to schedule any [...] traveled recently to another state outside of [place], [place], [place], [place], [place], [place], [place]? no o If yes, did you quarantine [...] of accident/Injury: No If yes, gather 3rd libertarian insurance information Third Green Party Information: not applicable PCP: Oscar Hackett MD Payor: [facility] / Plan: [employer] ONE C[employer] / Product Type: *No Product type* / documented in this encounter Plan of Treatment Upcoming Encounters Date Type Department Care Team (Late st Contact Info) Description 04/27/2025 1:00 PM EDT Office Visit Adult Medicine [address] [phone] Oscar Hackett MD [address] [place] [address] 10/15/2025 2:00 PM EDT Office Visit [address] [phone] Oscar Hackett MD [address] [place] [address] documented as of this encounter Visit Diagnoses Not on filedocumented in this encounter Additional Health Concerns Assessment Noted Time PHQ-9 Depression Total Score: 11 12/04/2 024 5:52 AM EST documented as of this encounter Care Teams Tractor Operator Helper Relationship Specialty Start Date End Date Oscar Hackett MD [address] [place] [phone] PCP - General Internal Medicine 05/27/24 documented as of this encounter
== END 2025-04-01 09:55 | disposition home or self-care (01) ==
LOC: HO.HOSX 09:54
PROVIDERS: Visit Provider Physician Assistant
DX: S92.355D Nondisplaced fracture of fifth metatarsal bone, left foot, subsequent encounter for fracture with routine healing (principal); X58.XXXD Exposure to other specified factors, subsequent encounter
CPT/HCPCS: 73630; 99212

== ENCOUNTER 2025-04-01 10:42 | Outpatient (AMB) | payer OTHER, SELFPAY ==
--- NOTE | 2025-04-01 11:02 | MHC.OFFVIS ---
Intake Visit Reasons: OV-LT 5th metatarsal fx, DOI 02/11/25 w/ XR Intake Note: Renetta is a 69 year old female who presents today for a follow up of left 5th metatarsal fracture, DOI 02/11/25. At her last visit she was recommended to continue boot wear and transition into a regular street shoe with a stiff sole over the next 4 weeks, she will follow up in office in 4-6 weeks with x-rays. Patient reports that she has transitioned into a walking shoe. She complains of discomfort at fracture site, that is wrapping around her ankle and the top of her foot. Her blood pressure medication was recently changed and caused swelling, her swelling has improved. She was been trying to get use to using compression socks. She has been avoiding prolong walking. Allergies No Known Allergies Allergy (Verified 04/01/25 11:26) Medication List - Last Reviewed 04/01/25 by Andreia Silva, DENNIS acetaminophen 1,000 mg (2 x 500 mg) PO .q8 PRN atorvastatin 20 mg PO DAILY calcium carbonate-vitamin D3 500 mg-10 mcg (400 unit) (Oyster Shell Calcium-Vitamin D3) tabs PO cyclobenzaprine 5 mg PO TID divalproex 500 mg PO BID fluoxetine 40 mg PO DAILY gabapentin mg PO ibuprofen 600 mg PO Q8H PRN lidocaine 5% 1 patch topical DAILY lisinopril 40 mg PO DAILY multivitamin with folic acid 400 mcg (Daily-Marcelino (with folic acid)) 1 tab PO DAILY quetiapine 100 mg PO BEDTIME HPI HPI OV-LT 5th metatarsal fx, DOI 02/11/25 w/ XR: Details: 69-year-old female returns to the office today for a follow-up left 5th metatarsal fracture date of injury 02/11/2025. She has discontinued the use of the boot in his into regular street shoes. She has mild discomfort with daily activities overall she is doing well. [facility] Social History (System 05/22/23 @ 14:51 by Yamilet Zhou) Alcohol intake: former Review of Systems Const All systems reviewed & are unremarkable except as noted in HPI and below Physical Exam Const General: cooperative and no acute distress Orientation/consciousness: patient oriented x3 Resp Effort & Inspection: normal respiratory effort and able to speak in complete sentences Cardio Peripheral pulses: Peripheral pulses 2+ throughout Neuro General: patient oriented x3 Extrem Other: Left foot skin intact. No significant swelling. Trace tenderness at the base of the 5th metatarsal. Sensation intact. EHL intact. No pain along the mediolateral malleolus. Neurovascularly intact. Results Reviewed Results Reviewed: X-rays of the left foot obtained in the office today and reviewed by me show interval healing through the base of the 5th metatarsal. Assessment & Plan Assessment & Plan (1) Fracture of fifth metatarsal bone of left foot: Code(s): S92.352A - Displaced fracture of fifth metatarsal bone, left foot, initial encounter for closed fracture Category: Medical Qualifiers: Encounter type: initial encounter Fracture alignment: nondisplaced Fracture type: closed Qualified Code(s): S92.355A - Nondisplaced fracture of fifth metatarsal bone, left foot, initial encounter for closed fracture Plan At this time she will continue with activities as tolerated. I did explain another 6 weeks for solid union but this does depend on bone quality and the fact that she is a smoker could delay this. I did encourage caution with impact activities to avoid further injury. If symptoms persist or worsen over the next 6-8 weeks she will contact us for re-evaluation otherwise she will follow up as needed. Orders: Orders XR foot LT min 3V Today M79.672 - Pain in left foot Coding Level of Care Code Global (85635) Diagnoses Fracture of fifth metatarsal bone of left foot S92.355A Encounter type: initial encounter Fracture alignment: nondisplaced Fracture type: closed
== END 2025-04-01 12:07 | disposition home or self-care (01) ==
LOC: HO.HOS 10:43
PROVIDERS: PCP Internal Medicine; Visit Provider Physician Assistant
DX: S92.355A Nondisplaced fracture of fifth metatarsal bone, left foot, initial encounter for closed fracture (principal)
CPT/HCPCS: 99213

== ENCOUNTER → 2025-04-01 11:09 | Outpatient (BNV) | payer OTHER, SELFPAY | PROVIDERS: Visit Provider Radiology Diagnostic Radiology | DX: M79.672 Pain in left foot (principal) | CPT/HCPCS: 73630 ==